=== PATIENT | male | born 1965 | race African-American/Black ===

== ENCOUNTER 2017-11-29 08:11 | Emergency (ER) | payer SELFPAY ==
--- NOTE | 2017-11-29 08:47 | ER Document Report ---
ED General - General Chief Complaint: Abdominal Pain Stated Complaint: CHEST PAIN, BLOOD IN STOOL Time Seen by Provider: 11/29/17 08:45 Information source: Patient TRAVEL OUTSIDE OF THE [place] IN LAST 30 DAYS: No - HPI Patient complains to provider of: cp/blood in stool/abd fullness/left side pain Notes: Patient is ambulatory and presents from home with multiple complaints. He states he has had chest pressure in the center of his chest intermittently for the last 2 weeks which is worse with ambulation. He also states his abdomen is barragan than normal. He states he has left pain on the side of his ribs going down into his left lower extremity. He states he has had blood in his stool for the last few weeks. He also states that a few days ago he wore shoes that he normally does not wear and injured his right second toe and now has blood underneath the nail. Patient's past medical history includes diabetes hypertension abdominal aortic aneurysm for which he received a stent placement in 2001. Patient denies any cardiac issues. He does have a primary medical doctor in another town. He states he was living in [place] until a few years ago and then transferred here. He has an appointment with his doctor December 20, 2017. Denies a history of stress test or cardiac catheterization in the past. - Related Data Allergies/Adverse Reactions: No Known Allergies Allergy (Verified 07/21/14 12:11) Past Medical History - General Information source: Patient - Social History Smoking Status: Former Smoker Frequency of alcohol use: None Drug Abuse: None Lives with: Family Family History: Reviewed & Not Pertinent Patient has suicidal ideation: No Patient has homicidal ideation: No - Past Medical History Cardiac Medical History: Reports: Hx Hypertension Pulmonary Medical History: Reports: None EENT Medical History: Reports: None Neurological Medical History: Reports: None. Denies: Hx Seizures Endocrine Medical History: Reports: Hx Diabetes Mellitus Type 2 Renal/ Medical History: Reports: None Malignancy Medical History: Reports None GI Medical History: Reports: None Musculoskeltal Medical History: Reports None Skin Medical History: Reports None Psychiatric Medical History: Reports: None Traumatic Medical History: Reports: None Infectious Medical History: Reports: None Past Surgical History: Reports: Other - stent to his aorta via groin - Immunizations Hx Diphtheria, Pertussis, Tetanus Vaccination: Yes Review of Systems - Review of Systems Constitutional: No symptoms reported EENT: No symptoms reported Cardiovascular: See HPI, Chest pain. denies: Palpitations, Heart racing, Orthopnea, Dyspnea, Syncope, Dizziness, Lightheaded, Edema Respiratory: No symptoms reported Gastrointestinal: Abdomen distended, Blood streaked bowels. denies: Abdominal pain, Diarrhea, Nausea, Vomiting, Constipation, Poor appetite, Poor fluid intake , Blood in vomit, Black stools, Rectal bleeding Genitourinary: No symptoms reported Male Genitourinary: No symptoms reported Musculoskeletal: No symptoms reported Skin: No symptoms reported Hematologic/Lymphatic: No symptoms reported Neurological/Psychological: No symptoms reported Physical Exam - Vital signs Vitals: Temp Pulse Resp BP Pulse Ox 98.9 F 72 16 171/109 H 97 11/29/17 08:18 11/29/17 08:18 11/29/17 08:18 11/29/17 08:18 11/29/17 08:18 - Notes Notes: PHYSICAL EXAMINATION: GENERAL: Well-appearing, well-nourished and in no acute distress. HEAD: Atraumatic, normocephalic. EYES: Pupils equal round and reactive to light, extraocular movements intact, sclera anicteric, conjunctiva are normal. ENT: Nares patent, oropharynx clear without exudates. Moist mucous membranes. NECK: Normal range of motion, supple without lymphadenopathy LUNGS: Breath sounds clear to auscultation bilaterally and equal. No wheezes rales or rhonchi. HEART: Regular rate and rhythm without murmurs ABDOMEN: Soft, nontender, nondistended abdomen. No guarding, no rebound. No masses appreciated. Musculoskeletal: Normal range of motion, no pitting or edema. No cyanosis. NEUROLOGICAL: Cranial nerves grossly intact. Normal speech, normal gait. Normal sensory, motor exams PSYCH: Normal mood, normal affect. SKIN: Warm, Dry, normal turgor, no rashes or lesions noted. Subungal hematoma right second toe-(blood is dark under nail and appears old). Course - Re-evaluation Re-evalutation: 11/29/17 11:[address] Ochoa, radiologist to discuss the results of the CT. 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 He states there is no aortic repair. He did state that there are clips around the pancreatic head. I did call [facility] direct for transfer and was referred to the cardiology center since I wanted to speak with the vascular surgeon. I did order fentanyl for the patient as he states he is having increased pain. I also discussed with him transfer. He states that he was taking care of in [place] because that is where he used to live and he does not have any preference as to transfer in this area. 11/29/17 12:04 I spoke with the vascular surgeon, Dr. He who stated ER to ER transfer. I talked to Dr. Hazel, who accepted patient. Demographics faxed, CT scan being electronically sent and transfer being arranged. pt. aware. - Vital Signs Vital signs: Temp Pulse Resp BP Pulse Ox 98.9 F 72 19 185/111 H 100 11/29/17 08:18 11/29/17 08:18 11/29/17 13:16 11/29/17 13:16 11/29/17 13:12 - Laboratory Result Diagrams: 11/29/17 08:41 11/29/17 08:41 Laboratory results interpreted by me: 11/29/17 11/29/17 08:41 08:41 WBC 3.6 L RBC 4.12 L Hgb 10.7 L Hct 31.9 L MCV 77 L MCH 25.9 L RDW 15.1 H Monocytes % 16.0 H Creatinine 1.42 H Est GFR (Non-Af Amer) 53 L Glucose 263 H AST 451 H ALT 461 H Alkaline Phosphatase 323 H Creatine Kinase 265 H - EKG Interpretation by Me EKG shows normal: Sinus rhythm Rate: Normal Additional EKG results interpreted by me: 11/29/17 09:51 NSSTT changes Discharge - Discharge Clinical Impression: Celiac artery dissection, Anemia, Chest pain, Subungual hematoma of toe of right foot Condition: Serious Disposition: [facility]
[2017-11-29 08:58] LABS: ABSOLUTE EOSINOPHILS # (AUTO) 0.1 10^3/uL (0.0-0.6); ABSOLUTE LYMPHOCYTES (AUTO) 0.7 10^3/uL (0.5-4.7); ABSOLUTE MONOCYTES (AUTO) 0.6 10^3/uL (0.1-1.4); ABSOLUTE NEUT (AUTO) 2.1 10^3/uL (1.7-8.2); BASOPHILS % (AUTO) 1.3 % (0-2); EOSINOPHILS % (AUTO) 3.2 % (0-6); HEMATOCRIT 31.9 % (37.9-51.0); HEMOGLOBIN 10.7 g/dL (13.5-17.0); LYMPHOCYTES % (AUTO) 20.7 % (13-45); MEAN CORPUSCULAR HEMOGLOBIN 25.9 pg (27.0-33.4); MEAN CORPUSCULAR HGB CONC 33.5 g/dL (32.0-36.0); MEAN CORPUSCULAR VOLUME 77 fl (80-97); PLATELET COUNT 284 10^3/uL (150-450); RED BLOOD COUNT 4.12 10^6/uL (4.35-5.55); RED CELL DISTRIBUTION WIDTH 15.1 % (11.5-14.0); SEGMENTED NEUTROPHILS % (AUTO) 58.8 % (42-78); TOTAL CELLS COUNTED % (AUTO) 100 %; WHITE BLOOD COUNT 3.6 10^3/uL (4.0-10.5)
[2017-11-29 09:10] LABS: ALANINE AMINOTRANSFERASE 461 U/L (21-72); ALBUMIN 3.8 g/dL (3.5-5.0); ALKALINE PHOSPHATASE 323 U/L (38-126); ANION GAP 10 (5-19); ASPARTATE AMINO TRANSFERASE 451 U/L (17-59); BILIRUBIN,DIRECT 0.4 mg/dL (0.0-0.4); BILIRUBIN,TOTAL 0.5 mg/dL (0.2-1.3); BLOOD UREA NITROGEN 17 mg/dL (7-20); CALCIUM 8.9 mg/dL (8.4-10.2); CARBON DIOXIDE 26 mmol/L (22-30); CHLORIDE 105 mmol/L (98-107); CREATINE KINASE 265 U/L (55-170); GLUCOSE 263 mg/dL (75-110); SODIUM 141.1 mmol/L (137-145); TOTAL PROTEIN 7.3 g/dL (6.3-8.2)
[2017-11-29 09:22] LABS: CREATINE KINASE MB 0.61 ng/mL (<4.55)
[2017-11-29 09:24] LABS: TROPONIN I < 0.012 ng/mL
--- NOTE | 2017-11-29 09:32 | RADIOLOGY REPORT (SQ) ---
EXAM DESCRIPTION: CHEST SINGLE VIEW COMPLETED DATE/TIME: 11/29/2017 9:04 am REASON FOR STUDY: chest pain COMPARISON: August 2008 EXAM PARAMETERS: NUMBER OF VIEWS: One view. TECHNIQUE: Single frontal radiographic view of the chest acquired. RADIATION DOSE: NA LIMITATIONS: None. FINDINGS: LUNGS AND PLEURA: No opacities, masses or pneumothorax. No pleural effusion. MEDIASTINUM AND HILAR STRUCTURES: No masses. Contour normal. HEART AND VASCULAR STRUCTURES: Heart normal in size. Normal vasculature. BONES: No acute findings. HARDWARE: None in the chest. OTHER: No other significant finding. IMPRESSION: NO ACUTE RADIOGRAPHIC FINDING IN THE CHEST. TECHNICAL DOCUMENTATION: JOB ID: [id number] [employer]- All Rights Reserved Reading location - IP/workstation name: [email or web address]
--- NOTE | 2017-11-29 09:36 | EKG REPORT ---
SEVERITY:- ABNORMAL ECG - SINUS RHYTHM PROBABLE LEFT VENTRICULAR HYPERTROPHY BORDERLINE T ABNORMALITIES, INFERIOR LEADS : Confirmed by: Matt Kim MD 29-Nov-2017 09:35:27
--- NOTE | 2017-11-29 10:56 | RADIOLOGY REPORT (SQ) ---
EXAM DESCRIPTION: CT CHEST WITH COMPLETED DATE/TIME: 11/29/2017 10:35 am REASON FOR STUDY: abd pain/history of AAA COMPARISON: Chest x-ray dated 11/29/2017 TECHNIQUE: CT scan of the chest performed using helical scanning technique with dynamic intravenous contrast injection. Images reviewed with lung, soft tissue and bone windows. Reconstructed coronal and sagittal MPR images reviewed. All images stored on PACS. All CT scanners at this facility use dose modulation, iterative reconstruction, and/or weight based d osing when appropriate to reduce radiation dose to as low as reasonably achievable (ALARA). [facility]: Dose Right [facility]: CareDose [facility]: Dose Right [facility]: Teradose 4D [facility]: 33Across CONTRAST TYPE AND DOSE: 100 venita Isovue 370 RENAL FUNCTION: Creatinine 1.4 RADIATION DOSE: . LIMITATIONS: None. FINDINGS: LUNGS AND PLEURA: No opacities, nodules, masses. No pneumothorax. No effusions. HILAR AND MEDIASTINAL STRUCTURES: No identified masses or abnormal nodes. HEART AND VASCULAR STRUCTURES: No aneurysm or dissection. No central pulmonary emboli. No pericardi al effusion. HARDWARE: None in the chest. UPPER ABDOMEN: See results under abdominal CT scan THYROID AND OTHER SOFT TISSUES: No masses. No adenopathy. BONES: No significant finding. OTHER: No other significant finding. IMPRESSION: No significant intrathoracic abnormalities were identified. Findings as noted above. TECHNICAL DOCUMENTATION: JOB ID: [id number] Quality ID # [id number]: Final reports with documentation of one or more dose reduction techniques (e.g., Au tomated exposure control, adjustment of the mA and/or kV according to patient size, use of iterative reconstruction technique) 2010 [employer]- All Rights Reserved Reading location - IP/workstation name: [email or web address]
--- NOTE | 2017-11-29 11:25 | RADIOLOGY REPORT (SQ) ---
EXAM DESCRIPTION: CT ABD/PELVIS WITH IV ONLY COMPLETED DATE/TIME: 11/29/2017 10:35 am REASON FOR STUDY: abd pain/history of AAA COMPARISON: July 2014 TECHNIQUE: CT scan of the abdomen and pelvis performed using helical scanning technique with dynamic intravenous contrast injection. No oral contrast. Images reviewed with lung, soft tissue, and bone windows. Reconstructed coronal and sagittal MPR images reviewed. Delayed images for evaluation of the urinary system also acquired. All images stored on PACS. All CT scanners at this facility use dose modulation, iterative reconstruction, and/or weight based d osing when appropriate to reduce radiation dose to as low as reasonably achievable (ALARA). [facility]: Dose Right [facility]: CareDose [facility]: Dose Right [facility]: Teradose 4D [facility]: Fanplayr CONTRAST TYPE AND DOSE: contrast/concentration: Isovue mg/ml; Total Contrast Delivered: 100.0 ml; T otal Saline Delivered: 63.8 ml RENAL FUNCTION: Creatinine 1.4 RADIATION DOSE: CT Rad equipment meets quality standard of care and radiation dose reduction techniq ues were employed. CTDIvol: 6.9 - 9.7 mGy. DLP: 1310 mGy-cm.. LIMITATIONS: None. FINDINGS: LOWER CHEST: No significant findings. No nodules or infiltrates. LIVER: Normal size. No masses. No dilated ducts. SPLEEN: Normal size. No focal lesions. PANCREAS: No masses. No significant calcifications. No adjacent inflammation or peripancreatic fluid collections. Pancreatic duct not dilated. The previously described postsurgical changes at the level the pancreatic head are again identified. GALLBLADDER: No identified stones by CT criteria. No inflammatory changes to suggest cholecystitis. ADRENAL GLANDS: No significant masses or asymmetry. RIGHT KIDNEY AND URETER: No solid masses. No significant calcifications. No hydronephrosis or hyd roureter. LEFT KIDNEY AND URETER: No solid masses. No significant calcifications. No hydronephrosis or hydr oureter. AORTA AND VESSELS: No evidence for an abdominal aortic aneurysm is seen. There is an apparent dissec tion involving the celiac axis. There are saccular structures surrounding branches of the hepatic ar silva in close proximity to the liver 1 measuring 3.8 cm in diameters and a 2nd measured 3.3 cm in justice meters. The appearance is suspicious for pseudo aneurysm was although other perivascular fluid colle ctions cannot be excluded. There were minimal perivascular densities involving the hepatic arteries on the previous study. Clinical correlation is recommended RETROPERITONEUM: No retroperitoneal adenopathy, hemorrhage or masses. BOWEL AND PERITONEAL CAVITY: No masses or inflammatory changes. No free fluid or peritoneal masses. APPENDIX: Normal. PELVIS: No mass. No free fluid. Normal bladder. ABDOMINAL WALL: No masses. Small umbilical hernia is identified containing fat BONES: No significant or acute findings. OTHER: No other significant finding. IMPRESSION: No evidence for an abdominal aortic aneurysm is seen. There is an apparent dissection i nvolving the celiac axis. There are saccular structure surrounding branches of the hepatic artery in close proximity to the liver as noted above suspicious for pseudoaneurysms although other perivascul ar fluid collections cannot be excluded. Clinical correlation is recommended. Other findings as not ed above TECHNICAL DOCUMENTATION: JOB ID: [id number] Quality ID # 436: Final reports with documentation of one or more dose reduction techniques (e.g., Au tomated exposure control, adjustment of the mA and/or kV according to patient size, use of iterative reconstruction technique) 2010 [employer]- All Rights Reserved Reading location - IP/workstation name: [facility]
[2017-11-29] MEDS ORDERED: FENTANYL CITRATE INJ/PF 100 MCG/2 ML AMPUL IV ONE (11:39)
[2017-11-29] MEDS ORDERED: LABETALOL HCL INJ 20 MG/4 ML DISP.SYRIN IV ONE (11:55)
[2017-11-29] MEDS ORDERED: HYDRALAZINE HCL INJ/PF 20 MG/1 ML SDV IV ONE ×2 (12:17→13:19)
[2017-11-29 13:23] VITALS: BP 185/111
== END 2017-11-29 13:51 | disposition short-term general hospital (02) ==
LOC: ER 08:11
DX: I77.79 Dissection of other specified artery (principal); D64.9 Anemia, unspecified; S90.121A Contusion of right lesser toe(s) without damage to nail, initial encounter; X58.XXXA Exposure to other specified factors, initial encounter; R07.9 Chest pain, unspecified; R10.9 Unspecified abdominal pain
CPT/HCPCS: 93005; 96376; 96374; 99285; 96375; 36415; 82553; 82550; 85025; 82272; 80053; 84484; 71045; 71260; 74177; 93010; J3010; J0360

== ENCOUNTER 2018-02-19 08:04 | Emergency (ER) | payer SELFPAY ==
--- NOTE | 2018-02-19 09:58 | ER Document Report ---
ED General - General Chief Complaint: Difficulty Swallowing Stated Complaint: CHEST PAIN WHEN EATING Time Seen by Provider: 02/19/18 08:45 Notes: 52-year-old male to the emergency department complaining of reflux. States that he was diagnosed with aneurysms in his abdomen. Multiple aneurysms. Was transferred to [facility]. Subsequently transferred to [facility] in [place]. Had a transesophageal biliary stent placed. Was discharged. Prior to the stent placement patient had jaundice and acute hepatotoxicity. Patient states that he has been placed on multiple medications but several of them make him worse. Pain comes up into the esophagus. When he lies flat he feels everything coming back up. States that he has an appointment today at [facility] but does not know with who. States that he was seen at [facility] but does not know which particular specialist. Does not know if it was a railway equipment operator or not. States that he was prescribed a "purple pill" for his reflux but it made him feel worse. Was prescribed medication on February 05 and he took 1 of the pills and it made it worse felt like it got stuck in his esophagus. TRAVEL OUTSIDE OF THE [place] IN LAST 30 DAYS: No - Related Data Allergies/Adverse Reactions: No Known Allergies Allergy (Unverified 02/19/18 08:06) Home Medications: HCTZ, bentyl, tramadol Past Medical History - Social History Smoking Status: Former Smoker Chew tobacco use (# tins/day): No Frequency of alcohol use: Rare Drug Abuse: Marijuana Family History: Reviewed & Not Pertinent Patient has suicidal ideation: No Patient has homicidal ideation: No - Past Medical History Cardiac Medical History: Reports: Hx Hypertension Neurological Medical History: Denies: Hx Seizures Endocrine Medical History: Reports: Hx Diabetes Mellitus Type 2 Renal/ Medical History: Denies: Hx Peritoneal Dialysis Past Surgical History: Reports: Other - stent to his aorta via groin - Immunizations Hx Diphtheria, Pertussis, Tetanus Vaccination: Yes Review of Systems - Review of Systems Constitutional: No symptoms reported EENT: No symptoms reported Cardiovascular: Chest pain Respiratory: No symptoms reported Gastrointestinal: No symptoms reported, Blood streaked bowels. denies: Abdominal pain, Diarrhea, Nausea, Vomiting Genitourinary: No symptoms reported Male Genitourinary: No symptoms reported Musculoskeletal: No symptoms reported Skin: No symptoms reported Hematologic/Lymphatic: No symptoms reported Neurological/Psychological: No symptoms reported Physical Exam - Vital signs Vitals: Temp Pulse Resp BP Pulse Ox 98.5 F 78 16 144/96 H 94 02/19/18 08:10 02/19/18 08:10 02/19/18 08:10 02/19/18 08:10 02/19/18 08:10 Interpretation: Normal - General General appearance: Appears well, Alert - HEENT Head: Normocephalic, Atraumatic Eyes: Normal Pupils: PERRL - Respiratory Respiratory status: No respiratory distress Chest status: Nontender Breath sounds: Normal Chest palpation: Normal - Cardiovascular Rhythm: Regular Heart sounds: Normal auscultation Murmur: No - Abdominal Inspection: Normal Distension: No distension Bowel sounds: Normal Tenderness: Nontender. No: Tender, Guarding, Rebound Organomegaly: No organomegaly. No: Hepatomegaly, Splenomegaly - Back Back: Normal, Nontender - Extremities General upper extremity: Normal inspection, Nontender, Normal color, Normal ROM , Normal temperature General lower extremity: Normal inspection, Nontender, Normal color, Normal ROM , Normal temperature, Normal weight bearing. No: Matthew's sign - Neurological Neuro grossly intact: Yes Cognition: Normal Orientation: AAOx4 Bolton Coma Scale Eye Opening: Spontaneous Bolton Coma Scale Verbal: Oriented Bolton Coma Scale Motor: Obeys Commands Bolton Coma Scale Total: 15 Speech: Normal Motor strength normal: LUE, RUE, LLE, RLE Sensory: Normal - Psychological Associated symptoms: Normal affect, Normal mood - Skin Skin Temperature: Warm Skin Moisture: Dry Skin Color: Normal Course - Re-evaluation Re-evalutation: 02/19/18 11:01 Patient states that he is having reflux every time he lies flat. Denies any fever, chills, sweats. Denies any abdominal pain. States that his main complaint is that he gets acid in the back of his throat and burning in his esophagus when he lies flat. States that whatever medicines of doctors have prescribed makes it worse. I was able to get in contact with gastroenterology at [facility] in [facility] [address] Sung was able to review history with me. States that he has a stent placed which drains into the esophagus. He has been advised on multiple occasions to not lie flat or this will exacerbate the reflux. Patient had stents in place and a MRI was ordered on February 05 so that he could be assessed for removal of the stents however patient has not made an appointment. The recommendation for medication that was made was for Carafate. The doctor spoke with today actually recommends placing patient on Carafate if he can afford it as well as cholestyramine which may help to bind up the bile acids. A review of his discharge labs were performed. Patient's hemoglobin and hematocrit is reportedly at his baseline. Patient denies any worsening gastrointestinal bleeding or dark tarry stools. States that he does have some intermittent blood in his stools that he has had for very long time and was told he has hemorrhoids. I have encouraged patient to follow-up with [facility] immediately to schedule his MRI and follow-up appointments. 02/19/18 11:27 Laboratory 02/19/18 02/19/18 09:20 09:20 WBC 14.7 H RBC 3.49 L Hgb 8.5 L Hct 26.5 L MCV 76 L MCH 24.3 L MCHC 32.0 RDW 18.7 H Plt Count 372 Seg Neutrophils % 86.7 H Lymphocytes % 5.6 L Monocytes % 6.8 Eosinophils % 0.5 Basophils % 0.4 Absolute Neutrophils 12.7 H Absolute Lymphocytes 0.8 Absolute Monocytes 1.0 Absolute Eosinophils 0.1 Absolute Basophils 0.1 Sodium 141.4 Potassium 3.6 Chloride 100 Carbon Dioxide 27 Anion Gap 14 BUN 32 H Creatinine 1.53 H Est GFR ( Amer) 58 L Est GFR (Non-Af Amer) 48 L Glucose 212 H Calcium 9.2 Total Bilirubin 0.5 Direct Bilirubin 0.5 H Neonat Total Bilirubin Not Reportable Neonat Direct Bilirubin Not Reportable Neonat Indirect Bili Not Reportable AST 57 ALT 38 Alkaline Phosphatase 195 H Total Protein 6.9 Albumin 3.3 L Lipase 450.0 H Chest X-Ray 02/19/18 10:26 IMPRESSION: NO ACUTE RADIOGRAPHIC FINDING IN THE CHEST. - Vital Signs Vital signs: Temp Pulse Resp BP Pulse Ox 98.5 F 78 22 H 144/96 H 97 02/19/18 08:10 02/19/18 08:10 02/19/18 09:11 02/19/18 08:10 02/19/18 09:11 - Laboratory Result Diagrams: 02/19/18 09:20 02/19/18 09:20 Laboratory results interpreted by me: 02/19/18 02/19/18 09:20 09:20 WBC 14.7 H RBC 3.49 L Hgb 8.5 L Hct 26.5 L MCV 76 L MCH 24.3 L RDW 18.7 H Seg Neutrophils % 86.7 H Lymphocytes % 5.6 L Absolute Neutrophils 12.7 H BUN 32 H Creatinine 1.53 H Est GFR ( Amer) 58 L Est GFR (Non-Af Amer) 48 L Glucose 212 H Direct Bilirubin 0.5 H Alkaline Phosphatase 195 H Albumin 3.3 L Lipase 450.0 H Discharge - Discharge Clinical Impression: Gastroesophageal reflux disease with esophagitis Condition: Good Disposition: HOME, SELF-CARE Instructions: Esophagitis ([facility]), Sucralfate ([facility]) Additional Instructions: These remain upright. Continue to exercise as much as possible. Lying flat will exacerbate her symptoms. Try the medication that has been prescribed. It will be very important that you follow-up with the gastroenterology team at [facility] to have your stents and repeat consultation performed. In the event that your symptoms are getting worse please return for repeat evaluation. Prescriptions: Cholestyramine/Aspartame [Cholestyramine Light Packet] 4 gm PO QHS 42 Days #42 powd.pack Sucralfate [Carafate] 1 gm PO QID 30 Days #1200 ml
[2018-02-19 10:37] LABS: ABSOLUTE BASOPHILS # (AUTO) 0.1 10^3/uL (0.0-0.2); ABSOLUTE EOSINOPHILS # (AUTO) 0.1 10^3/uL (0.0-0.6); ABSOLUTE LYMPHOCYTES (AUTO) 0.8 10^3/uL (0.5-4.7); ABSOLUTE NEUT (AUTO) 12.7 10^3/uL (1.7-8.2); BASOPHILS % (AUTO) 0.4 % (0-2); EOSINOPHILS % (AUTO) 0.5 % (0-6); HEMATOCRIT 26.5 % (37.9-51.0); HEMOGLOBIN 8.5 g/dL (13.5-17.0); LYMPHOCYTES % (AUTO) 5.6 % (13-45); MEAN CORPUSCULAR HEMOGLOBIN 24.3 pg (27.0-33.4); MEAN CORPUSCULAR VOLUME 76 fl (80-97); MONOCYTES % (AUTO) 6.8 % (3-13); PLATELET COUNT 372 10^3/uL (150-450); RED BLOOD COUNT 3.49 10^6/uL (4.35-5.55); RED CELL DISTRIBUTION WIDTH 18.7 % (11.5-14.0); SEGMENTED NEUTROPHILS % (AUTO) 86.7 % (42-78); TOTAL CELLS COUNTED % (AUTO) 100 %; WHITE BLOOD COUNT 14.7 10^3/uL (4.0-10.5)
[2018-02-19 10:41] LABS: ALANINE AMINOTRANSFERASE 38 U/L (21-72); ALBUMIN 3.3 g/dL (3.5-5.0); ALKALINE PHOSPHATASE 195 U/L (38-126); ANION GAP 14 (5-19); ASPARTATE AMINO TRANSFERASE 57 U/L (17-59); BILIRUBIN,DIRECT 0.5 mg/dL (0.0-0.4); BILIRUBIN,TOTAL 0.5 mg/dL (0.2-1.3); BLOOD UREA NITROGEN 32 mg/dL (7-20); CALCIUM 9.2 mg/dL (8.4-10.2); CARBON DIOXIDE 27 mmol/L (22-30); CHLORIDE 100 mmol/L (98-107); GLUCOSE 212 mg/dL (75-110); POTASSIUM 3.6 mmol/L (3.6-5.0); SODIUM 141.4 mmol/L (137-145); TOTAL PROTEIN 6.9 g/dL (6.3-8.2)
[2018-02-19] MEDS ORDERED: SUCRALFATE SUSP 1 GM/10 ML UDCUP PO ONE (10:46)
[2018-02-19] MEDS ORDERED: CHOLESTYRAMINE/ASPARTAME 4 GM PACKET PO ONE (10:46)
--- NOTE | 2018-02-19 11:07 | RADIOLOGY REPORT (SQ) ---
EXAM DESCRIPTION: CHEST SINGLE VIEW COMPLETED DATE/TIME: 02/19/2018 10:45 am REASON FOR STUDY: chest pain COMPARISON: CT chest 11/29/2017 AP chest 11/29/2017 EXAM PARAMETERS: NUMBER OF VIEWS: One view. TECHNIQUE: Single frontal radiographic view of the chest acquired. RADIATION DOSE: NA LIMITATIONS: None. FINDINGS: LUNGS AND PLEURA: No opacities, masses or pneumothorax. No pleural effusion. MEDIASTINUM AND HILAR STRUCTURES: No masses. Contour normal. HEART AND VASCULAR STRUCTURES: Stable borderline cardiomegaly BONES: No acute findings. HARDWARE: None in the chest. OTHER: No other significant finding. IMPRESSION: NO ACUTE RADIOGRAPHIC FINDING IN THE CHEST. TECHNICAL DOCUMENTATION: JOB ID: [id number] [employer]- All Rights Reserved Reading location - IP/workstation name: [email or web address]
[2018-02-19 11:45] VITALS: BP 150/108
--- NOTE | 2018-02-19 13:39 | EKG REPORT ---
SEVERITY:- ABNORMAL ECG - SINUS RHYTHM LEFT VENTRICULAR HYPERTROPHY : Confirmed by: Matt Kim MD 19-Feb-2018 13:38:08
== END 2018-02-19 11:45 | disposition home or self-care (01) ==
LOC: ER 08:04
DX: K21.0 Gastro-esophageal reflux disease with esophagitis (principal); I10 Essential (primary) hypertension; E11.9 Type 2 diabetes mellitus without complications; Z87.891 Personal history of nicotine dependence
CPT/HCPCS: 93005; 99285; 36415; 83690; 85025; 80053; 71045; 93010; J3490

== ENCOUNTER 2018-08-17 13:16 | Emergency (ER) | payer MEDICAID ==
--- NOTE | 2018-08-17 13:37 | ER Document Report ---
ED Medical Screen (RME) - General Chief Complaint: Abdominal Pain Stated Complaint: ABDOMINAL PAIN, BACK PAIN,SORE THROAT Time Seen by Provider: 08/17/18 13:25 Notes: 52-year-old male to the emergency department for evaluation of chest and abdominal pain. Patient reportedly has a history of aortic aneurysm status post stent. Scheduled to have reparative surgery in October. Was told to come here by his primary care doctor if symptoms get worse. I have greeted and performed a rapid initial assessment of this patient. A comprehensive ED assessment and evaluation of the patient, analysis of test results and completion of the medical decision making process will be conducted by additional ED providers. TRAVEL OUTSIDE OF THE [place] IN LAST 30 DAYS: No - Related Data Allergies/Adverse Reactions: No Known Allergies Allergy (Verified 08/17/18 13:37) Past Medical History - Social History Chew tobacco use (# tins/day): No Frequency of alcohol use: Rare Drug Abuse: None - Past Medical History Cardiac Medical History: Reports: Hx Hypertension Neurological Medical History: Denies: Hx Seizures Endocrine Medical History: Reports: Hx Diabetes Mellitus Type 2 Renal/ Medical History: Denies: Hx Peritoneal Dialysis Past Surgical History: Reports: Other - stent to his aorta via groin - Immunizations Hx Diphtheria, Pertussis, Tetanus Vaccination: Yes Review of Systems - Review of Systems Notes: Review of systems positive for the following: Chest pain, abdominal pain Physical Exam - Vital signs Vitals: Temp Pulse Resp BP Pulse Ox 97.6 F 83 18 145/98 H 98 08/17/18 13:20 08/17/18 13:20 08/17/18 13:20 08/17/18 13:20 08/17/18 13:20 Interpretation: Normal - Abdominal Inspection: Normal Distension: No distension Bowel sounds: Normal Tenderness: Tender - Diffuse abdominal tenderness Organomegaly: No organomegaly Course - Vital Signs Vital signs: Temp Pulse Resp BP Pulse Ox 97.6 F 83 18 145/98 H 98 08/17/18 13:20 08/17/18 13:20 08/17/18 13:20 08/17/18 13:20 08/17/18 13:20
[2018-08-17 14:12] LABS: ABSOLUTE BASOPHILS # (AUTO) 0.1 10^3/uL (0.0-0.2); ABSOLUTE EOSINOPHILS # (AUTO) 0.1 10^3/uL (0.0-0.6); ABSOLUTE LYMPHOCYTES (AUTO) 1.1 10^3/uL (0.5-4.7); ABSOLUTE MONOCYTES (AUTO) 0.7 10^3/uL (0.1-1.4); ABSOLUTE NEUT (AUTO) 3.6 10^3/uL (1.7-8.2); BASOPHILS % (AUTO) 1.1 % (0-2); EOSINOPHILS % (AUTO) 2.3 % (0-6); HEMATOCRIT 32.3 % (37.9-51.0); MEAN CORPUSCULAR HEMOGLOBIN 24.4 pg (27.0-33.4); MEAN CORPUSCULAR HGB CONC 34.1 g/dL (32.0-36.0); MEAN CORPUSCULAR VOLUME 72 fl (80-97); MONOCYTES % (AUTO) 13.1 % (3-13); PLATELET COUNT 317 10^3/uL (150-450); RED BLOOD COUNT 4.51 10^6/uL (4.35-5.55); RED CELL DISTRIBUTION WIDTH 17.8 % (11.5-14.0); SEGMENTED NEUTROPHILS % (AUTO) 63.5 % (42-78); TOTAL CELLS COUNTED % (AUTO) 100 %; WHITE BLOOD COUNT 5.7 10^3/uL (4.0-10.5)
--- NOTE | 2018-08-17 14:57 | ER Document Report ---
ED General - General Chief Complaint: Abdominal Pain Stated Complaint: ABDOMINAL PAIN, BACK PAIN,SORE THROAT Time Seen by Provider: 08/17/18 13:25 Notes: 52-year-old male with a history of aortic aneurysm presents to the ER complaining of chest and abdominal pain. He stated he has had this pain ever since he had his aortic aneurysm repaired. He states he just feels that it is getting worse. He has not followed up with [facility] where it was repaired just due to the distance to [facility]. The patient complains of aching pain in this area. Starts in his epigastrium radiates to his back. The patient also complains of a sore throat cough has been coughing up yellow-green sputum and flecks of blood. States he has had chills but denies fever. Coughing makes his throat feel worse. He describes it more as burning. Rates the chest and abdominal pain as severe. Nothing makes that better or worse TRAVEL OUTSIDE OF THE [place] IN LAST 30 DAYS: No - Related Data Allergies/Adverse Reactions: No Known Allergies Allergy (Verified 08/17/18 13:37) Past Medical History - Social History Smoking Status: Current Some Day Smoker Chew tobacco use (# tins/day): No Frequency of alcohol use: Rare Drug Abuse: None Family History: Reviewed & Not Pertinent Patient has suicidal ideation: No Patient has homicidal ideation: No - Past Medical History Cardiac Medical History: Reports: Hx Hypertension Neurological Medical History: Denies: Hx Seizures Endocrine Medical History: Reports: Hx Diabetes Mellitus Type 2 Renal/ Medical History: Denies: Hx Peritoneal Dialysis Past Surgical History: Reports: Other - stent to his aorta via groin - Immunizations Hx Diphtheria, Pertussis, Tetanus Vaccination: Yes Review of Systems - Review of Systems Constitutional: Chills. denies: Fever EENT: Nose congestion, Throat pain. denies: Throat swelling Cardiovascular: Chest pain, Dyspnea. denies: Syncope, Dizziness, Lightheaded, Edema Respiratory: denies: Short of breath Gastrointestinal: Abdominal pain, Nausea. denies: Vomiting, Constipation Genitourinary: denies: Dysuria, Hematuria Neurological/Psychological: denies: Headaches Physical Exam - Vital signs Vitals: Temp Pulse Resp BP Pulse Ox 97.6 F 83 18 145/98 H 98 08/17/18 13:20 08/17/18 13:20 08/17/18 13:20 08/17/18 13:20 08/17/18 13:20 - Notes Notes: GENERAL_APPEARANCE: well_nourished, alert, cooperative VITALS: reviewed, see vital signs table. HEAD: no_swelling\tenderness on the head. EYES: PERRL, EOMI, conjunctiva_clear. NOSE: no_nasal_discharge. MOUTH: (-)decreased moisture. No drooling no stridor no exudates, no asymmetry THROAT: Mild throat_inflammation, no_airway_obstruction. no_lymphadenopathy NECK: supple, no_neck_tenderness, (-)thyromegaly. BACK: no_back_tenderness. CHEST_WALL: no_chest_tenderness. LUNGS: no_wheezing, no_rales, no_rhonchi, (-)accessory muscle use, good air exchange bilateral. HEART: normal_rate, normal_rhythm, normal_S1, normal_S2, (-)S3, (-)S4, no_ murmur, no_rub. ABDOMEN: normal_BS, soft, epigastric_abd_tenderness, (-)guarding, (-)rebound, no_organomegaly, no_abd_masses. Large scar right upper quadrant EXTREMITIES: strength 5/5 in all_extremities, good pulses in all_extremities, no_swelling\tenderness in the extremities, no_edema. SKIN: warm, dry, good_color, no_rash. MENTAL_STATUS: speech_clear, oriented_X_3, normal_affect, responds_ appropriately to questions. NEURO: Neg Motor or Sensory Deficits on exam, CN 2-12 intact, DTR 2+ symmetric x 4, No cerbellar signs Course - Re-evaluation Re-evalutation: 08/17/18 14:56 52-year-old male with a history of aortic aneurysm presents complaining of chest and abdominal pain. He states the pain is radiating to his back. States he has had this on and off since he has had a surgery. He feels that it is worse. Will get a CTA to evaluate the chest and abdominal aorta. From the history it sounds as if the patient had a stent and may have had an endovascular leak. He has a large right upper quadrant incision which is clean dry and intact and healed. Patient has good pulses throughout. 08/17/18 18:00 CT scan showed no change to the abdominal arch thoracic aorta. Is intact there is no signs of leakage. EKG shows no ischemic changes at the sinus rhythm. Rest the blood work is normal. The patient does have a pharyngitis throat culture is done. We will treat him empirically for that I spoke with him at length about the importance of follow-up with vascular surgery at [facility]. He stated that he can afford to get there and would just come to the ER when he needs things checked on. He did have some infiltration of the contrast in his arm and explained to him the dangers of not doing this on a scheduled basis. Including infiltration of contrast and frequent exposures to contrast may worsen kidney function. He verbalized understanding. 08/17/18 18:02 The patient stated he has been having this discomfort since the surgery. This is likely postoperative changes. There is no signs of any leak EKG was unchanged I doubt he is been having a cardiac event this long. This does not seem characteristic of this. - Vital Signs Vital signs: Temp Pulse Resp BP Pulse Ox 97.6 F 83 18 145/98 H 98 08/17/18 13:20 08/17/18 13:20 08/17/18 13:20 08/17/18 13:20 08/17/18 13:20 - Laboratory Result Diagrams: 08/17/18 13:54 08/17/18 15:20 Laboratory results interpreted by me: 08/17/18 08/17/18 13:54 15:20 Hgb 11.0 L Hct 32.3 L MCV 72 L MCH 24.4 L RDW 17.8 H Monocytes % 13.1 H BUN 24 H Creatinine 1.58 H Est GFR ( Amer) 56 L Est GFR (Non-Af Amer) 46 L Glucose 215 H Alkaline Phosphatase 190 H - Diagnostic Test Radiology reviewed: Reports reviewed Radiology results interpreted by me: 08/17/18 18:01 Chest X-Ray 08/17/18 13:37 IMPRESSION: HEART ENLARGED WITHOUT FAILURE. NO OTHER SIGNIFICANT RADIOGRAPHIC FINDING IN THE CHEST. Abdomen/Pelvis CTA 08/17/18 14:52 IMPRESSION: 1. 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 Liver circulation is presumably sustained by portal flow. 2. No evidence of abdominal aortic aneurysm or dissection. 3. Mild enlargement of the tubular ascending aorta measuring up to 4.5 x 4.2 cm. No evidence of dissection or acute aortic syndrome. 4. Left and right percutaneous biliary drains are in position. Chest/Abdomen CTA 08/17/18 14:52 IMPRESSION: 1. 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 Liver circulation is presumably sustained by portal flow. 2. No evidence of abdominal aortic aneurysm or dissection. 3. Mild enlargement of the tubular ascending aorta measuring up to 4.5 x 4.2 cm. No evidence of dissection or acute aortic syndrome. 4. Left and right percutaneous biliary drains are in position. Discharge - Discharge Clinical Impression: Pharyngitis Qualifiers: Pharyngitis/tonsillitis etiology: streptococcus Qualified Code(s): J02.0 - Streptococcal pharyngitis Abdominal pain Qualifiers: Abdominal location: generalized Qualified Code(s): R10.84 - Generalized abdominal pain Condition: Good Disposition: HOME, SELF-CARE Instructions: Abdominal Pain ([facility]), Sore Throat ([facility]) Prescriptions: Amoxicillin 1 tab PO TID #30 tab
--- NOTE | 2018-08-17 15:03 | RADIOLOGY REPORT (SQ) ---
EXAM DESCRIPTION: CHEST 2 VIEWS COMPLETED DATE/TIME: 08/17/2018 2:52 pm REASON FOR STUDY: chest pain COMPARISON: None. NUMBER OF VIEWS: One view. TECHNIQUE: Single frontal radiographic view of the chest acquired. LIMITATIONS: None. FINDINGS: LUNGS AND PLEURA: No opacities, masses or pneumothorax. No pleural effusion. MEDIASTINUM AND HILAR STRUCTURES: No masses. Contour normal. HEART AND VASCULAR STRUCTURES: Heart enlarged without failure. Normal vasculature. BONES: No acute findings. HARDWARE: Abdominal hardware incompletely imaged. OTHER: No other significant finding. IMPRESSION: HEART ENLARGED WITHOUT FAILURE. NO OTHER SIGNIFICANT RADIOGRAPHIC FINDING IN THE CHEST. TECHNICAL DOCUMENTATION: JOB ID: [id number] [employer]- All Rights Reserved Reading location - IP/workstation name: [email or web address]
[2018-08-17 15:39] LABS: INTERNATIONAL RATION (INR) 1.05; PROTHROMBIN TIME 14.2 SEC (11.4-15.4)
[2018-08-17 15:55] LABS: ALANINE AMINOTRANSFERASE 38 U/L (21-72); ALBUMIN 4.1 g/dL (3.5-5.0); ALKALINE PHOSPHATASE 190 U/L (38-126); ANION GAP 12 (5-19); ASPARTATE AMINO TRANSFERASE 24 U/L (17-59); BILIRUBIN,DIRECT 0.3 mg/dL (0.0-0.4); BILIRUBIN,TOTAL 1.1 mg/dL (0.2-1.3); BLOOD UREA NITROGEN 24 mg/dL (7-20); CALCIUM 9.1 mg/dL (8.4-10.2); CARBON DIOXIDE 29 mmol/L (22-30); CHLORIDE 103 mmol/L (98-107); GLUCOSE 215 mg/dL (75-110); LIPASE 146.6 U/L (23-300); POTASSIUM 3.8 mmol/L (3.6-5.0); SODIUM 143.8 mmol/L (137-145); TOTAL PROTEIN 7.9 g/dL (6.3-8.2)
[2018-08-17 16:08] LABS: NT PRO BNP 46 pg/mL (5-900)
[2018-08-17 16:09] LABS: TROPONIN I < 0.012 ng/mL
--- NOTE | 2018-08-17 17:18 | RADIOLOGY REPORT (SQ) ---
EXAM DESCRIPTION: CTA CHEST; CTA ABDOMEN/PELVIS W WO COMPLETED DATE/TIME: 08/17/2018 4:54 pm REASON FOR STUDY: Chest / ABD Pain - Aortic Aneurysm Protocol IMPRESSION: 1. Postprocedural findings of embolic and Amplatzer device occlusion of the hepatic art shell system aneurysm and dissection seen on prior examination, without evidence of residual contrast e nhancement distal to occlusive device. Liver circulation is presumably sustained by portal flow. 2. No evidence of abdominal aortic aneurysm or dissection. 3. Mild enlargement of the tubular ascending aorta measuring up to 4.5 x 4.2 cm. No evidence of diss ection or acute aortic syndrome. 4. Left and right percutaneous biliary drains are in position. TECHNICAL DOCUMENTATION: JOB ID: [id number] Quality ID # [id number]: Final reports with documentation of one or more dose reduction techniques (e.g., Au tomated exposure control, adjustment of the mA and/or kV according to patient size, use of iterative reconstruction technique) 2010 [employer]- All Rights Reserved CONTRAST TYPE AND DOSE: contrast/concentration: Isovue 350.00 mg/ml; Total Contrast Delivered: 100.0 ml; Total Saline Delivered: 73.4 ml Contrast bolus optimized for the aorta. RENAL FUNCTION: GFR > 60. LIMITATIONS: None. COMPARISON: CT angiogram, 11/29/2017 TECHNIQUE: CT scan of the thoracic and abdominal aorta extending to the iliac bifurcation performed with and without intravenous contrast using helical scanning technique with dynamic intravenous contr ast injection. Images reviewed with lung, soft tissue, and bone windows. Reconstructed coronal and sa gittal MPR images reviewed. All images stored on PACS. Advanced 3D imaging as volume rendering, MIPS, SSD performed? yes All CT scanners at this facility use dose modulation, iterative reconstruction, and/or weight based d osing when appropriate to reduce radiation dose to as low as reasonably achievable (ALARA). [facility]: Dose Right [facility]: CareDose [facility]: Dose Right [facility]: Teradose 4D [facility]: CodeGlide, S.A. FINDINGS: NON-CONTRASTED IMAGING: No significant renal or bladder calcifications. No other significa nt organ calcifications. POST-CONTRAST IMAGING: AORTA AND VESSELS: Postprocedural findings of embolic and Amplatzer device occlusion of the hepatic a rtery system aneurysm and dissection seen on prior examination, without evidence of residual contrast enhancement distal to occlusive device. No evidence of abdominal aortic aneurysm. Incidental note of small accessory inferior pole left renal artery. Minimal calcific atherosclerosis of the abdomina l aorta. LUNGS: No significant findings. No nodules or infiltrates. LIVER: Normal size. No masses or dilated ducts. SPLEEN: Normal size. No focal lesions. PANCREAS: No masses. No significant calcifications. No adjacent inflammation or peripancreatic fluid collections. Pancreatic duct not dilated. GALLBLADDER: No identified stones by CT criteria. No inflammatory changes to suggest cholecystitis. ADRENAL GLANDS: No significant masses or asymmetry. RIGHT KIDNEY AND URETER: No mass, calculi or urinary tract obstruction. LEFT KIDNEY AND URETER: No mass, calculi or urinary tract obstruction. RETROPERITONEUM: No retroperitoneal adenopathy, hemorrhage or masses. BOWEL AND PERITONEAL CAVITY: No masses or inflammatory changes. No free fluid or peritoneal masses. APPENDIX: Normal. ABDOMINAL WALL: No masses. Broad-based umbilical hernia. BONY STRUCTURES: No significant or acute findings. 3-D IMAGING: Confirms the above findings. OTHER: No other significant finding. AORTA AND GREAT VESSELS: Mild enlargement of the tubular ascending aorta measuring up to 4.5 x 4.2 cm . No dissection. HEART: No pericardial effusion. No significant coronary artery calcifications. PULMONARY ARTERIES: No emboli visualized in the main pulmonary arteries or the segmental branches on this non tailored examination. Reading location - IP/workstation name: [email or web address]
[2018-08-17 18:18] VITALS: BP 136/88
--- NOTE | 2018-08-18 10:42 | EKG REPORT ---
SEVERITY:- ABNORMAL ECG - SINUS RHYTHM LEFT VENTRICULAR HYPERTROPHY : Confirmed by: Manuel Lewis 18-Aug-2018 10:41:40
== END 2018-08-17 18:20 | disposition home or self-care (01) ==
LOC: ER 13:16
DX: J02.0 Streptococcal pharyngitis (principal); R10.84 Generalized abdominal pain; M54.9 Dorsalgia, unspecified; R05 Cough; I10 Essential (primary) hypertension; E11.9 Type 2 diabetes mellitus without complications
CPT/HCPCS: 36415; 71046; 71275; 74174; 80053; 83690; 83880; 84484; 85025; 85610; 87070; 87880; 93005; 93010; 99285

== ENCOUNTER → 2018-10-21 | Outpatient (CLI) | payer MEDICAID ==
--- NOTE | 2018-10-21 10:56 | RADIOLOGY REPORT (SQ) ---
EXAM DESCRIPTION: LUMBAR SPINE COMPLETE COMPLETED DATE/TIME: 10/21/2018 10:41 am REASON FOR STUDY: RADICULOPATHY, LUMBAR REGION M54.16 RADICULOPATHY, LUMBAR REGION chronic mid lumb ar pain since 2014 COMPARISON: CT abdomen and pelvis 08/17/2018 NUMBER OF VIEWS: Five views including obliques. TECHNIQUE: AP, lateral, oblique, and sacral radiographic images acquired of the lumbar spine. LIMITATIONS: None. FINDINGS: MINERALIZATION: Normal. SEGMENTATION: Normal. No transitional anatomy. ALIGNMENT: Normal. VERTEBRAE: Maintained height. No fracture or worrisome bone lesion. DISCS: Preserved height. No significant osteophytes or end plate irregularity. POSTERIOR ELEMENTS: Pedicles and facets are intact. No pars defect or posterior arch defects. HARDWARE: None in the spine. Embolization coils and occlusive balloons are present in the mid epigas tric region around the pancreatic head PARASPINAL SOFT TISSUES: Normal. PELVIS: SI joints intact. Entire pelvis not included in the field of view OTHER: No other significant finding. IMPRESSION: No acute fracture or malalignment TECHNICAL DOCUMENTATION: JOB ID: [id number] [employer]- All Rights Reserved Reading location - IP/workstation name: [email or web address]
== END ==
LOC: OD 10:22
PROVIDERS: ATTEND Family Medicine
DX: M54.16 Radiculopathy, lumbar region (principal)
CPT/HCPCS: 72110

== ENCOUNTER 2019-01-10 16:38 | Inpatient (IN) | payer MEDICAID ==
[2019-01-10] MEDS ORDERED: KETOROLAC TROMETHAMINE INJ/PF 30 MG/1 ML SDV IV ONE (17:32)
[2019-01-10] MEDS ORDERED: NORMAL SALINE 1000 ML 1,000 ML IV ONE ×3 (17:32→23:28)
--- NOTE | 2019-01-10 17:36 | ER Document Report ---
ED Medical Screen (RME) - General Chief Complaint: Headache Stated Complaint: LEG PAIN Time Seen by Provider: 01/10/19 17:22 Primary Care Provider: NITA MIKE MD [Primary Care Provider] - Follow up as needed TRAVEL OUTSIDE OF THE [place] IN LAST 30 DAYS: No - HPI Notes: 01/10/19 17:33 Patient is a 53-year-old male with a history of hypertension and diabetes who presents to the emergency department complaining of headache, acute on chronic low back pain, generalized body ache that began a couple days ago with the fever beginning yesterday. He is still able to eat and drink, but does have a decreased p.o. intake. He is urinating normally and having normal bowel movements. Denies IV drug abuse or history of spinal abscess. Denies neck stiffness, URI, CP, SOB, Abd pain, or rash. I have treated and performed a rapid initial assessment of this patient. A comprehensive ED assessment and evaluation of the patient, analysis of test results and completion of medical decision making process will be conducted by additional ED providers. PHYSICAL EXAMINATION: GENERAL: Well-appearing, well-nourished and in no acute distress. A&Ox4. Answers questions appropriately. LUNGS: Breath sounds clear to auscultation bilaterally and equal. No wheezes rales or rhonchi. HEART: Regular rate and rhythm without murmurs, rubs, gallops. Extremities: No cyanosis, clubbing, or edema b/l. NEUROLOGICAL: Normal speech, normal gait. PSYCH: Normal mood, normal affect. - Related Data Allergies/Adverse Reactions: No Known Allergies Allergy (Verified 01/10/19 16:41) Past Medical History - Social History Chew tobacco use (# tins/day): No Frequency of alcohol use: Occasional Drug Abuse: Prescription drugs - Past Medical History Cardiac Medical History: Reports: Hx Hypertension Neurological Medical History: Denies: Hx Seizures Endocrine Medical History: Reports: Hx Diabetes Mellitus Type 2 Renal/ Medical History: Denies: Hx Peritoneal Dialysis Past Surgical History: Reports: Other - stent to his aorta via groin - Immunizations Hx Diphtheria, Pertussis, Tetanus Vaccination: Yes Physical Exam - Vital signs Vitals: Temp Pulse Resp BP Pulse Ox 101.8 F H 113 H 17 170/108 H 95 01/10/19 17:14 01/10/19 17:14 01/10/19 17:14 01/10/19 17:14 01/10/19 17:14 Course - Vital Signs Vital signs: Temp Pulse Resp BP Pulse Ox 101.8 F H 113 H 17 170/108 H 95 01/10/19 17:14 01/10/19 17:14 01/10/19 17:14 01/10/19 17:14 01/10/19 17:14 Doctor's Discharge - Discharge Referrals: NITA MIKE MD [Primary Care Provider] - Follow up as needed
[2019-01-10] MEDS ORDERED: ACETAMINOPHEN 325 MG TABLET PO ONE (18:15)
[2019-01-10 18:58] LABS: ABSOLUTE BASOPHILS # (AUTO) 0.1 10^3/uL (0.0-0.2); ABSOLUTE EOSINOPHILS # (AUTO) 0.1 10^3/uL (0.0-0.6); ABSOLUTE LYMPHOCYTES (AUTO) 1.2 10^3/uL (0.5-4.7); ABSOLUTE MONOCYTES (AUTO) 0.7 10^3/uL (0.1-1.4); ABSOLUTE NEUT (AUTO) 8.1 10^3/uL (1.7-8.2); BASOPHILS % (AUTO) 0.7 % (0-2); EOSINOPHILS % (AUTO) 0.5 % (0-6); HEMATOCRIT 35.9 % (37.9-51.0); HEMOGLOBIN 12.1 g/dL (13.5-17.0); LYMPHOCYTES % (AUTO) 11.5 % (13-45); MEAN CORPUSCULAR HEMOGLOBIN 24.9 pg (27.0-33.4); MEAN CORPUSCULAR HGB CONC 33.6 g/dL (32.0-36.0); MEAN CORPUSCULAR VOLUME 74 fl (80-97); MONOCYTES % (AUTO) 7.4 % (3-13); PLATELET COUNT 295 10^3/uL (150-450); RED BLOOD COUNT 4.86 10^6/uL (4.35-5.55); RED CELL DISTRIBUTION WIDTH 17.5 % (11.5-14.0); SEGMENTED NEUTROPHILS % (AUTO) 79.9 % (42-78); TOTAL CELLS COUNTED % (AUTO) 100 %; WHITE BLOOD COUNT 10.1 10^3/uL (4.0-10.5)
--- NOTE | 2019-01-10 19:07 | RADIOLOGY REPORT (SQ) ---
EXAM DESCRIPTION: CHEST SINGLE VIEW COMPLETED DATE/TIME: 01/10/2019 6:59 pm REASON FOR STUDY: fever COMPARISON: 08/17/2018 EXAM PARAMETERS: NUMBER OF VIEWS: One view. TECHNIQUE: Single frontal radiographic view of the chest acquired. RADIATION DOSE: NA LIMITATIONS: None. FINDINGS: LUNGS AND PLEURA: No opacities, masses or pneumothorax. No pleural effusion. MEDIASTINUM AND HILAR STRUCTURES: No masses. Contour normal. HEART AND VASCULAR STRUCTURES: Heart normal in size. Normal vasculature. BONES: No acute findings. HARDWARE: None in the chest. OTHER: No other significant finding. IMPRESSION: NO ACUTE RADIOGRAPHIC FINDING IN THE CHEST. TECHNICAL DOCUMENTATION: JOB ID: [id number] [employer]- All Rights Reserved Reading location - IP/workstation name: [email or web address]
[2019-01-10 19:22] LABS: ALANINE AMINOTRANSFERASE 21 U/L (21-72); ALBUMIN 4.6 g/dL (3.5-5.0); ALKALINE PHOSPHATASE 177 U/L (38-126); ANION GAP 13 (5-19); ASPARTATE AMINO TRANSFERASE 27 U/L (17-59); BILIRUBIN,DIRECT 0.4 mg/dL (0.0-0.4); BILIRUBIN,TOTAL 0.8 mg/dL (0.2-1.3); BLOOD UREA NITROGEN 23 mg/dL (7-20); CALCIUM 9.7 mg/dL (8.4-10.2); CARBON DIOXIDE 22 mmol/L (22-30); CHLORIDE 102 mmol/L (98-107); GLUCOSE 187 mg/dL (75-110); POTASSIUM 4.3 mmol/L (3.6-5.0)
[2019-01-10] MEDS ORDERED: KETOROLAC TROMETHAMINE INJ/PF 30 MG/1 ML SDV ONE (20:44)
[2019-01-10] MEDS ORDERED: ACETAMINOPHEN 325 MG TABLET ONE (20:44)
[2019-01-10 20:49] LABS: VENOUS BLOOD BASE EXCESS 2.6 mmol/L; VENOUS BLOOD HCO3 26.8 mmol/L (20-32); VENOUS BLOOD PCO2 39.8 mmHg (35-63); VENOUS BLOOD PH 7.45 (7.30-7.42)
[2019-01-10] MEDS ORDERED: CEFEPIME 2 GM/D5W RTU 2 GM/50 ML RTUPB IV ONE (21:17)
[2019-01-10] MEDS ORDERED: IBUPROFEN 600 MG TABLET PO ONE (21:18)
--- NOTE | 2019-01-10 21:24 | ER Document Report ---
ED General - General Chief Complaint: Headache Stated Complaint: LEG PAIN Time Seen by Provider: 01/10/19 17:22 Cannot obtain history due to: Uncooperative Notes: Patient is a 53-year-old male with a past medical history of hypertension, history of abdominal aortic aneurysm status post repair with a history of an aortic thrombus, noncompliant with his medications, presents complaining of low back pain, headache and fever. The patient is an extremely challenging historian, struggles to provide a cogent history as to why he is presenting to the emergency department today. On a multitude of occasions I do attempt to redirect the patient to give me his specific concerns today and he continues to give a long list of different complaints. After much attempt the patient does focus mostly on his low back stating that he has chronic daily back pain but has today much worse back pain than normal. Describes it as a throbbing, constant, aching discomfort. He states walking or moving worsens the back pain. He d enies IV drug use, history of back surgery, denies any focal weakness or numbness, bowel incontinence, urinary retention or bladder incontinence. Denies any trauma to the back. States that his fever started last night, has not done anything to treat it. Has had a mild cough but denies any sore throat. No history of similar symptoms in the past. Has not seen his primary doctor regarding today's concerns. Denies abdominal pain, chest pain or shortness of breath. TRAVEL OUTSIDE OF THE [place] IN LAST 30 DAYS: No - Related Data Allergies/Adverse Reactions: No Known Allergies Allergy (Verified 01/10/19 16:41) Past Medical History - General Information source: Patient - Social History Smoking Status: Current Some Day Smoker Chew tobacco use (# tins/day): No Frequency of alcohol use: Occasional Drug Abuse: Prescription drugs Lives with: Family Family History: Reviewed & Not Pertinent Patient has suicidal ideation: No Patient has homicidal ideation: No - Past Medical History Cardiac Medical History: Reports: Hx Hypertension Neurological Medical History: Denies: Hx Seizures Endocrine Medical History: Reports: Hx Diabetes Mellitus Type 2 Renal/ Medical History: Denies: Hx Peritoneal Dialysis Past Surgical History: Reports: Other - stent to his aorta via groin - Immunizations Hx Diphtheria, Pertussis, Tetanus Vaccination: Yes Review of Systems - Review of Systems Notes: Constitutional: Positive for fever HENT: Negative for sore throat. Eyes: Negative for visual changes. Cardiovascular: Negative for chest pain. Respiratory: Negative for shortness of breath. Positive cough Gastrointestinal: Negative for abdominal pain, vomiting or diarrhea. Genitourinary: Negative for dysuria. Musculoskeletal: Positive for low back pain Skin: Negative for rash. Neurological: N positive for headache 10 point ROS negative except as marked above and in HPI. Physical Exam - Vital signs Vitals: Temp Pulse Resp BP Pulse Ox 101.8 F H 113 H 17 170/108 H 95 01/10/19 17:14 01/10/19 17:14 01/10/19 17:14 01/10/19 17:14 01/10/19 17:14 Interpretation: Hypertensive, Tachycardic, Febrile Notes: PHYSICAL EXAMINATION: GENERAL: Somewhat ill in appearance but in no overt distress HEAD: Atraumatic, normocephalic. EYES: Pupils equal round and reactive to light, extraocular movements intact, sclera anicteric, conjunctiva are normal. ENT: nares patent, oropharynx clear without exudates. Dry mucous membranes. NECK: Normal range of motion, supple without lymphadenopathy LUNGS: Breath sounds clear to auscultation bilaterally and equal. No wheezes rales or rhonchi. HEART: Regular tachycardia without murmurs ABDOMEN: Soft, nontender, normoactive bowel sounds. No guarding, no rebound. No masses appreciated. Back: No midline spinal tenderness, step-offs or deformities EXTREMITIES: Normal range of motion, no pitting or edema. No cyanosis. NEUROLOGICAL: 5 out of 5 strength both distally and proximally bilateral lower extremities. 2+ patellar reflexes bilaterally. No clonus. Sensation grossly intact in the bilateral lower extremities. Patient is able to ambulate without difficulty. PSYCH: Anxious, tangential historian. SKIN: Warm, Dry, normal turgor, no rashes or lesions noted. Course - Re-evaluation Re-evalutation: 01/10/19 21:21 Patient presents ill in appearance, febrile, tachycardic, somewhat lethargic in bed with complaints of headache, back pain, leg pain and fever. The patient is a very difficult historian, has a near complete positive review of systems which makes it quite difficult to delineate what is his main concerns. However patient is objectively ill in appearance, has fever and tachycardia. His main complaint appears to be low back pain which he states that he has had for many months but that is much worse today. He states he is having pain radiate down his legs but denies any focal weakness, numbness, incontinence. On exam he has 5 out of 5 both distally and proximally bilateral lower extremities, 2+ radial and ankle reflexes. No saddle anesthesia. On back exam there is no midline spinal tenderness, step-offs or deformities although he is globally tender in this paraspinous spaces throughout the thoracic and lumbar spine region. He has no CVA tenderness. The patient has a history of an abdominal aortic aneurysm rupture status post repair but denies any abdominal pain. He has no focal abdominal pain on examination. He said that he has had a mild cough, denies sore throat. Chest x-ray clear without evidence of pneumonia, influenza is pending. Patient has no meningismus, full neck range of motion both actively and passively. States his headache is quite mild. He is not encephalopathic, low clinical suspicion for a bacterial meningitis, although viral meningitis remains a differential although it would be unusual for this to be causing some prominent back pain. At this point the differential is quite large given the overall difficulty of obtaining a good history from the patient as well as his ill appearance. My first step at this point will be get an MRI of the patient's lumbar and thoracic spine to definitively exclude an epidural abscess given his fever and complaint of severe back pain. If this is normal and I am not identifying any other alternative source of infection as his urinalysis is still pending I will proceed with a lumbar puncture to definitively exclude meningitis. Given the delay for the definitive diagnosis I will begin empiric treatment with IV antibiotics, 2 g cefepime. IV fluids ongoing. Patient has received antipyretics but remains febrile. Patient is in guarded condition, will reassess at regular intervals. 01/10/19 21:58 Patient is unable to get an MRI secondary to aneurysmal clips. At this point will get CT of the abdomen pelvis as well as the thoracic and lumbar spine with IV contrast which is not the ideal study but is my only option at this point. 01/10/19 23:22 All imaging has been canceled at this point as patient's influenza test has returned positive. Patient does have some but not all clinical symptomology to support this diagnosis as he does deny sore throat but does complain of minimal cough. However with a source of his fever I do think that the most probable diagnosis is actually that the patient is having myalgias and associated mus culoskeletal pain worsening of his chronic pain secondary to fever. His symptoms have actually improved dramatically after he defervesced. Will discuss with Dr. Chicas for hospitalization as patient is having periods of hypoxia while awake coming down to the mid 80s on room air. I will set him up he has been started due to the fact that he will require hospitalization. 01/10/19 23:[address] speak to [address] Chicas for admission. He has requested a CTA of the chest as well as CT scan of the abdomen and pelvis given patient has a history of a thrombus in his aorta and he is concerned that that could be playing part of his hypoxia. States that as long as this is acceptable he will accept the patient. 01/11/19 02:19 CTA of the chest and CT abdomen pelvis as requested by Dr. Chicas are without any acute findings that would be related to his current presentation. He has been accepted to the [facility]. 01/11/19 03:24 - Vital Signs Vital signs: Temp Pulse Resp BP Pulse Ox 98.2 F 113 H 15 153/90 H 94 01/11/19 00:57 01/10/19 17:14 01/11/19 02:21 01/11/19 02:21 01/11/19 02:21 - Laboratory Result Diagrams: 01/10/19 18:48 01/10/19 18:48 Laboratory results interpreted by me: 01/10/19 01/10/19 01/10/19 18:03 18:48 18:48 Hgb 12.1 L Hct 35.9 L MCV 74 L MCH 24.9 L RDW 17.5 H Seg Neutrophils % 79.9 H Lymphocytes % 11.5 L VBG pH BUN 23 H Creatinine 1.83 H Est GFR ( Amer) 47 L Est GFR (Non-Af Amer) 39 L Glucose 187 H POC Glucose 192 H Alkaline Phosphatase 177 H Total Protein 9.0 H Urine Protein Urine Glucose (UA) Urine Blood 01/10/19 01/10/19 20:37 21:25 Hgb Hct MCV MCH RDW Seg Neutrophils % Lymphocytes % VBG pH 7.45 H BUN Creatinine Est GFR ( Amer) Est GFR (Non-Af Amer) Glucose POC Glucose Alkaline Phosphatase Total Protein Urine Protein 100 H Urine Glucose (UA) 50 H Urine Blood MODERATE H - Diagnostic Test Radiology reviewed: Image reviewed, Reports reviewed Radiology results interpreted by me: 01/11/19 02:20 Chest x-ray: No acute infiltrate or pneumothorax Critical Care Note - Critical Care Note Total time excluding time spent on procedures (mins): 35 Comments: Critical care time spent obtaining history from patient or surrogate, discussions with consultants, development of treatment plan with patient or surrogate, evaluation of patient's response to treatment, examination of patien t, ordering and performing treatments and interventions, ordering and review of laboratory studies, re-evaluation of patient's condition, ordering and review of radiographic studies and review of old charts Discharge - Discharge Clinical Impression: Influenza, Acute respiratory failure with hypoxia Fever Qualifiers: Fever type: unspecified Qualified Code(s): R50.9 - Fever, unspecified Low back pain Qualifiers: Chronicity: chronic Back pain laterality: unspecified Sciatica presence: without sciatica Qualified Code(s): M54.5 - Low back pain Headache Qualifiers: Headache type: unspecified Headache chronicity pattern: acute headache I ntractability: not intractable Qualified Code(s): R51 - Headache Condition: Fair Disposition: ADMITTED INPATIENT Admitting Provider: Chicas Unit Admitted: [facility]
[2019-01-10] MEDS ORDERED: HYDROMORPHONE HCL INJ/PF 2 MG/ML AMPULE IV PRN (21:35)
[2019-01-10 21:36] LABS: APPEARANCE,URINE CLEAR; BILIRUBIN,URINE NEGATIVE (NEGATIVE); COLOR,URINE YELLOW; GLUCOSE, URINE 50 mg/dL (NEGATIVE); KETONES,URINE NEGATIVE (NEGATIVE); LEUKOCYTE ESTERASE,URINE NEGATIVE (NEGATIVE); NITRITE,URINE NEGATIVE (NEGATIVE); PROTEIN,URINE 100 mg/dL (NEGATIVE); URINE SPECIFIC GRAVITY 1.013; UROBILINOGEN,URINE NEGATIVE mg/dL (<2.0)
[2019-01-10 21:58] LABS: A TYPE INFLUENZA AG NEGATIVE (NEGATIVE); B INFLUENZA AG POSITIVE (NEGATIVE)
--- NOTE | 2019-01-10 23:09 | RADIOLOGY REPORT (SQ) ---
EXAM DESCRIPTION: CT HEAD WITHOUT IV CONTRAST COMPLETED DATE/TME: 01/10/2019 22:26 CLINICAL HISTORY: 53 years Male, fever, headache COMPARISON: 10/04/14 TECHNIQUE: No contrast. Coronal and sagittal reformat. This exam was performed according to our departmental dose-optimization program, which includes automated exposure control, adjustment of the mA and/or kV according to patient size and/or use of iterative reconstruction technique. FINDINGS: No hemorrhage or infarct. No mass, mass effect, or midline shift. Megacisterna magna. 0.3 cm benign calcified nodule of the right posterior fossa, chronic. Brain and extra-axial structures appear otherwise intact. IMPRESSION: No acute findings.
[2019-01-10] MEDS ORDERED: OSELTAMIVIR PHOSPHATE 75 MG CAPSULE PO ONE (23:21)
--- NOTE | 2019-01-11 01:16 | RADIOLOGY REPORT (SQ) ---
CLINICAL HISTORY: hypoxia, white request COMPARISON: None. TECHNIQUE: CT CHEST ANGIOGRAPHY WITHOUT THEN WITH IV CONTRAST, CT ABDOMEN PELVIS WITH IV CONTRAST on 01/10/2019 11:27 PM CDT. MIPS reconstructions were generated. This exam was performed according to our departmental dose-optimization program, which includes automated exposure control, adjustment of the mA and/or kV according to patient size and/or use of iterative reconstruction technique. FINDINGS: Vascular: The midascending thoracic aorta is dilated at 4.4 cm. There is no dissection. Pulmonary arteries are suboptimally opacified with no larger central filling defects. Abdominal aorta is normal in course and caliber without aneurysm. Pelvic arteries are patent without aneurysm or occlusion. The heart is normal in size. There is no pericardial effusion. Intrathoracic lymph nodes are not enlarged. There is no pleural effusion, pleural thickening or pneumothorax. Central airways are patent. Lungs are clear with no consolidation, mass or interstitial lung disease. Abdomen: The liver is nodular in contour. There is mild central intrahepatic biliary dilatation. Gallbladder is decompressed. There are multiple surgical clips and coils surrounding the pancreatic head. Spleen is normal in size. The adrenal glands and kidneys are unremarkable. Abdominal aorta is normal in course and caliber without aneurysm. There is no free air. There is no retroperitoneal adenopathy.There is a fat-containing umbilical hernia. Pelvis: There is mild diverticulosis of the distal colon. Urinary bladder is unremarkable. There is no free fluid. Appendix is normal. Skeleton: There are no acute osseous findings. No suspicious bony lesions. IMPRESSION: Central hepatic biliary dilatation. Mild dilatation of the mid ascending thoracic aorta without dissection. No large or central pulmonary embolus. No pneumonia.
[2019-01-11] MEDS ORDERED: IPRATROPIUM/ALBUTEROL 0.5-2.5 MG/3 ML AMPUL NEB PRN (02:24)
[2019-01-11] MEDS ORDERED: GLUCAGON,HUMAN RECOMB 1 MG INJ IM PRN (02:32)
[2019-01-11] MEDS ORDERED: DEXTROSE 50%-WATER 25 GM/50 ML DISP.SYRIN IV PRN ×2 (02:32)
[2019-01-11] MEDS ORDERED: DEXTROSE 40% GEL 15 GM TUBE PO PRN ×2 (02:32)
[2019-01-11 03:34] LABS: URINE AMPHETAMINES SCREEN NEGATIVE; URINE BARBITURATES SCREEN NEGATIVE; URINE BENZODIAZEPINES SCREEN NEGATIVE; URINE COCAINE SCREEN UNCONFIRMED POSITIVE; URINE MARIJUANA (THC) SCREEN NEGATIVE; URINE METHADONE SCREEN NEGATIVE; URINE PHENCYCLIDINE SCREEN NEGATIVE
[2019-01-11] MEDS: OXYCODONE-ACETAMINOPHEN 5-325 MG TABLET PO PRN ×4 (04:07→22:16)
[2019-01-11] MEDS: NORMAL SALINE 1000 ML 1,000 ML IV PRN ×2 (04:25→15:23)
[2019-01-11] MEDS: PANTOPRAZOLE SODIUM 40 MG TABLET.DR PO SCH (05:58)
[2019-01-11] MEDS: INSULIN LISPRO 100 UNIT/ML 3 ML VIAL SUBCUT SCH ×4 (08:40→22:33)
[2019-01-11] MEDS ORDERED: CEFEPIME 2 GM/D5W RTU 2 GM/50 ML RTUPB IV SCH (10:00)
[2019-01-11] MEDS: DOCUSATE SODIUM 100 MG CAPSULE PO SCH ×2 (11:34→17:22)
[2019-01-11] MEDS: CEFEPIME HCL 2 GM in DEXTROSE 5%-WATER 50 ML IV SCH ×2 (11:34→22:23)
[2019-01-11] MEDS: OSELTAMIVIR PHOSPHATE 75 MG CAPSULE PO SCH ×2 (11:34→17:24)
--- NOTE | 2019-01-11 11:52 | PDOC H&P ---
History of Present Illness Admission Date/PCP: 01/11/19 02:37 NITA MIKE MD Patient complains of: Fever History of Present Illness: BIANCA CUNNINGHAM is a 53 year old male This is a 53-year-old male with a history of the type 2 diabetes history of the hypertension's history of the substernal abuse and history of noncompliance and a history of aortic aneurysm repair at [facility] which is also noncompliance to follow recently as a new patient to the practice came to the emergency department with a complaining of a fever headache and a severe back pain. Patient is a very poor historians according to the ER physicians he tried to get the history unable to get it much and with doing a lot of testings which including the CT of the head was negative and a CT of the chest abdomen and pelvis was done because of the patient's not giving the proper history to rule o ut the other etiology which is also negative for any acute findings. Patient is positive for the flu which is related to the all the symptoms decided to admit in the hospital Patient with chronic back problems always asks some pain medications seen by the pain management in the past Patient also have this vascular issue which referred to the vascular surgeon at [facility] in the [facility] vascular call the patient he did not answer and he claimed he did not answer the unknown phone number which very noncompliance to not follow Patients do not take the medicine as prescribed Patient urine drug screen is positive for cocaine but patients denied to use it patient said that he used to marijuana Patient's when I saw it in the IMCU still complaining of back pain Patient unable to go to the MRI due to the vascular clip Patient's review the all the CT scan was all stable Patient with chronic kidney disease currently see Dr. Pinzon recently get a contrast will continues IV fluids and closely monitor We will put the patient has some pain medication and consult the pain management in order the CT of the LS spine and C-spine further evaluations but unable to get the MRI Patient denied any visual problem No sign of any meningitis Continues to IV fluid continues IV antibiotics Patient otherwise alert awake oriented answer all question appropriately except complaining of a pain Supposed to be on Eliquis because patient have a thrombus in the aorta which current CT scan is all stable but I do not think so patients take any Eliquis as prescribed Past Medical History Cardiac Medical History: Reports: Hypertension Neurological Medical History: Denies: Seizures Endocrine Medical History: Reports: Diabetes Mellitus Type 2 Renal/ Medical History: Reports: Chronic Kidney Disease GI Medical History: Reports: Gastroesophageal Reflux Disease Musculoskeltal Medical History: Reports: Arthritis, Other Musculoskeletal History Note: Chronic back pain and chronic pain syndrome Psychiatric Medical History: Reports: Substance Abuse Past Surgical History Past Surgical History: Reports: Vascular Surgery, Other - stent to his aorta via groin Social History Lives with: Family Smoking Status: Current Some Day Smoker Frequency of Alcohol Use: Occasional Hx Recreational Drug Use: Yes Drugs: Cocaine Hx Prescription Drug Abuse: Yes - Advance Directive Resuscitation Status: Full Code Family History Family History: Reviewed & Not Pertinent Parental Family History Reviewed: Yes Children Family History Reviewed: Yes Sibling(s) Family History Reviewed.: Yes Medication/Allergy Allergies/Adverse Reactions: No Known Allergies Allergy (Verified 01/10/19 16:41) Review of Systems All systems: reviewed and no additional remarkable complaints except as stated Constitutional: PRESENT: chills, fatigue, fever(s) Nose, Mouth, and Throat: PRESENT: headache(s) Cardiovascular: PRESENT: dyspnea on exertion Respiratory: PRESENT: cough, dyspnea Psychiatric: PRESENT: anxiety Physical Exam Vital Signs: Temp Pulse Resp BP Pulse Ox 99.1 F 112 H 14 164/93 H 98 01/11/19 07:46 01/11/19 07:46 01/11/19 07:46 01/11/19 07:46 01/11/19 07:46 Intake & Output 01/10/19 01/11/19 01/12/19 06:59 06:59 06:59 Intake Total 3450 Output Total 3600 Balance -150 Weight 98.2 kg General appearance: PRESENT: no acute distress, well-developed, well-nourished Head exam: PRESENT: atraumatic, normocephalic Eye exam: PRESENT: conjunctiva pink, EOMI, PERRLA. ABSENT: scleral icterus Ear exam: PRESENT: normal external ear exam Mouth exam: PRESENT: moist, tongue midline Neck exam: PRESENT: full ROM. ABSENT: carotid bruit, JVD, lymphadenopathy, thyromegaly Respiratory exam: PRESENT: clear to auscultation [place] Cardiovascular exam: PRESENT: RRR. ABSENT: diastolic murmur, rubs, systolic murmur Pulses: PRESENT: normal dorsalis pedis pul, +2 pedal pulses bilateral Vascular exam: PRESENT: normal capillary refill GI/Abdominal exam: PRESENT: normal bowel sounds, soft. ABSENT: distended, guarding, mass, organolmegaly, rebound, tenderness Rectal exam: PRESENT: deferred Extremities exam: ABSENT: pedal edema Neurological exam: PRESENT: alert, awake, oriented to person, oriented to place, oriented to time, oriented to situation, reflexes normal, CN II-XII grossly intact, normal gait. ABSENT: motor sensory deficit Additional comments: No meningeal sign Psychiatric exam: PRESENT: appropriate affect, normal mood. ABSENT: homicidal ideation, suicidal ideation Skin exam: PRESENT: dry, intact, warm. ABSENT: cyanosis, rash Results Laboratory Results: 01/10/19 18:48 01/10/19 18:48 01/10/19 01/10/19 01/10/19 18:48 18:48 20:37 WBC 10.1 RBC 4.86 Hgb 12.1 L Hct 35.9 L MCV 74 L MCH 24.9 L MCHC 33.6 RDW 17.5 H Plt Count 295 Seg Neutrophils % 79.9 H Lymphocytes % 11.5 L Monocytes % 7.4 Eosinophils % 0.5 Basophils % 0.7 Absolute Neutrophils 8.1 Absolute Lymphocytes 1.2 Absolute Monocytes 0.7 Absolute Eosinophils 0.1 Absolute Basophils 0.1 VBG pH VBG pCO2 VBG HCO3 VBG Base Excess Sodium 137.0 Potassium 4.3 Chloride 102 Carbon Dioxide 22 Anion Gap 13 BUN 23 H Creatinine 1.83 H Est GFR ( Amer) 47 L Est GFR (Non-Af Amer) 39 L Glucose 187 H Lactic Acid 1.3 Calcium 9.7 Total Bilirubin 0.8 AST 27 ALT 21 Alkaline Phosphatase 177 H Total Protein 9.0 H Albumin 4.6 Urine Color Urine Appearance Urine pH Ur Specific [place] Urine Protein Urine Glucose (UA) Urine Ketones Urine Blood Urine Nitrite Ur Leukocyte Esterase Urine WBC (Auto) Urine RBC (Auto) 01/10/19 01/10/19 20:37 21:25 WBC RBC Hgb Hct MCV MCH MCHC RDW Plt Count Seg Neutrophils % Lymphocytes % Monocytes % Eosinophils % Basophils % Absolute Neutrophils Absolute Lymphocytes Absolute Monocytes Absolute Eosinophils Absolute Basophils VBG pH 7.45 H VBG pCO2 39.8 VBG HCO3 26.8 VBG Base Excess 2.6 Sodium Potassium Chloride Carbon Dioxide Anion Gap BUN Creatinine Est GFR ( Amer) Est GFR (Non-Af Amer) Glucose Lactic Acid Calcium Total Bilirubin AST ALT Alkaline Phosphatase Total Protein Albumin Urine Color YELLOW Urine Appearance CLEAR Urine pH 5.0 Ur Specific [place] 1.013 Urine Protein 100 H Urine Glucose (UA) 50 H Urine Ketones NEGATIVE Urine Blood MODERATE H Urine Nitrite NEGATIVE Ur Leukocyte Esterase NEGATIVE Urine WBC (Auto) 0 Urine RBC (Auto) 1 Impressions: Chest X-Ray 01/10/19 17:32 IMPRESSION: NO ACUTE RADIOGRAPHIC FINDING IN THE CHEST. Head CT 01/10/19 22:26 IMPRESSION: No acute findings. Abdomen/Pelvis CT 01/10/19 23:26 IMPRESSION: Central hepatic biliary dilatation. Mild dilatation of the mid ascending thoracic aorta without dissection. No large or central pulmonary embolus. No pneumonia. Chest/Abdomen CTA 01/10/19 23:27 IMPRESSION: Central hepatic biliary dilatation. Mild dilatation of the mid ascending thoracic aorta without dissection. No large or central pulmonary embolus. No pneumonia. Assessment & Plan - Diagnosis (1) Influenza Is this a current diagnosis for this admission?: Yes Plan: Continues to Tamiflu (2) Fever Qualifiers: Fever type: unspecified Qualified Code(s): R50.9 - Fever, unspecified Is this a current diagnosis for this admission?: Yes Plan: Most likely from the influenza We will get the blood culture urine culture No sign of any meningitis No indication of the lumbar puncture at this point (3) Type 2 diabetes mellitus Is this a current diagnosis for this admission?: Yes Plan: Continues a sliding scales (4) Hypertension Qualifiers: Hypertension type: essential hypertension Qualified Code(s): I10 - Essent ial (primary) hypertension Is this a current diagnosis for this admission?: Yes Plan: Continues to current medication (5) Substance abuse Is this a current diagnosis for this admission?: Yes Plan: Patients need a psych consult (6) Aortic aneurysm Qualifiers: Presence of rupture: without rupture Is this a current diagnosis for this admission?: Yes Plan: CT scan looks all stable (7) Headache Qualifiers: Headache type: unspecified Headache chronicity pattern: acute headache Intractability: not intractable Qualified Code(s): R51 - Headache Is this a current diagnosis for this admission?: Yes Plan: Patient CT of the head is negative Unable to get the MRI Most likely related to the influenza fever No sign of any meningitis (8) Low back pain Qualifiers: Chronicity: chronic Back pain laterality: unspecified Sciatica presence: without sciatica Qualified Code(s): M54.5 - Low back pain; G89.29 - Other chronic pain Is this a current diagnosis for this admission?: Yes Plan: Will get the CT of the C-spine and L-spine while unable to get the MRI We will consult the pain management - Time Time Spent: 50 to 70 Minutes Medications reviewed and adjusted accordingly: Yes Anticipated discharge: Home Within: Other - Inpatient Certification Based on my medical assessment, after consideration of the patient's comorbidities, presenting symptoms, or acuity I expect that the services needed warrant INPATIENT care.: Yes I certify that my determination is in accordance with my understanding of Medicare's requirements for reasonable and necessary INPATIENT services [42 CFR 412.3e].: Yes Medical Necessity: Significant Comorbidiites Make Outpatient Treatment Too Risky, Need Close Monitoring Due to Risk of Patient Decompensation, Need For IV Fluids, Need for IV Antibiotics Post Hospital Care: D/C Business Enterprise Officer Documentation - Plan Summary Plan Summary: Admit the patient in IMCU IV fluid Tamiflu IV antibiotic until the cultures back Continues to monitor We will get the CT of the C-spine and L-spine Consult pain management
[2019-01-11] MEDS: ACETAMINOPHEN 325 MG TABLET PO PRN ×2 (13:09→21:02)
[2019-01-11] MEDS ORDERED: (PENDING PHARMACY ID) (Linagliptin [Tradjenta] 5 MG) PO SCH (13:45)
[2019-01-11 14:32] LABS: ALANINE AMINOTRANSFERASE 24 U/L (21-72); ALBUMIN 3.9 g/dL (3.5-5.0); ALKALINE PHOSPHATASE 138 U/L (38-126); ASPARTATE AMINO TRANSFERASE 17 U/L (17-59); BILIRUBIN,DIRECT 0.4 mg/dL (0.0-0.4); TOTAL PROTEIN 7.5 g/dL (6.3-8.2)
[2019-01-11] MEDS: SITAGLIPTIN PHOSPHATE 50 MG TABLET PO SCH (15:18)
[2019-01-11] MEDS: GABAPENTIN 300 MG CAPSULE PO SCH ×2 (15:18→22:23)
[2019-01-11] MEDS: METOPROLOL TARTRATE 100 MG TABLET PO SCH (15:18)
--- NOTE | 2019-01-11 16:07 | RADIOLOGY REPORT (SQ) ---
EXAM DESCRIPTION: CT LUMBAR SPINE WITHOUT COMPLETED DATE/TIME: 01/11/2019 3:47 pm REASON FOR STUDY: low back pain COMPARISON: None. TECHNIQUE: Axial images acquired through the lumbar spine without intravenous contrast. Images revi ewed with lung, soft tissue and bone windows. Reconstructed coronal and sagittal MPR images reviewed . All images stored on PACS. All CT scanners at this facility use dose modulation, iterative reconstruction, and/or weight based d osing when appropriate to reduce radiation dose to as low as reasonably achievable (ALARA). [facility]: Dose Right [facility]: CareDose [facility]: Dose Right [facility]: Teradose 4D [facility]: [employer] RADIATION DOSE: mGy. LIMITATIONS: None. FINDINGS: SEGMENTATION: Normal. No transitional anatomy. ALIGNMENT: Normal. VERTEBRAL BODIES: No fractures. No dislocation. No acute findings. DISCS: Maintained heights generally. Mild disc bulging at L4-5. Mild broad protrusion is suggested at L5-S1. This likely contacts the right S1 nerve root without displacement. PEDICLES, TRANSVERSE PROCESSES: No fractures. No dislocation. No acute findings. FACETS, POSTERIOR ELEMENTS: No fractures. No dislocation. No spinal stenosis. HARDWARE: None in the spine. VISUALIZED RIBS: No fractures. SOFT TISSUES: No significant or acute finding in adjacent soft tissues. OTHER: No other significant finding. IMPRESSION: 1. Lower lumbar disc disease. 2. No high-grade stenosis, fracture or bone lesion. No spinal malalignment detected. TECHNICAL DOCUMENTATION: JOB ID: [id number] Quality ID # [id number]: Final reports with documentation of one or more dose reduction techniques (e.g., Au tomated exposure control, adjustment of the mA and/or kV according to patient size, use of iterative reconstruction technique) 2010 [employer]- All Rights Reserved Reading location - IP/workstation name: [email or web address]
--- NOTE | 2019-01-11 16:16 | RADIOLOGY REPORT (SQ) ---
EXAM DESCRIPTION: CT CERVICAL SPINE WITHOUT COMPLETED DATE/TIME: 01/11/2019 3:47 pm REASON FOR STUDY: neck pain COMPARISON: None. TECHNIQUE: Axial images acquired through the cervical spine without intravenous contrast. Images re viewed with lung, soft tissue and bone windows. Reconstructed coronal and sagittal MPR images review ed. Images stored on PACS. All CT scanners at this facility use dose modulation, iterative reconstruction, and/or weight based d osing when appropriate to reduce radiation dose to as low as reasonably achievable (ALARA). [facility]: Dose Right [facility]: CareDose [facility]: Dose Right [facility]: Teradose 4D [facility]: [employer] RADIATION DOSE: CT Rad equipment meets quality standard of care and radiation dose reduction techniq ues were employed. CTDIvol: 25.2 mGy. DLP: 574 mGy-cm. mGy. LIMITATIONS: None. FINDINGS: ALIGNMENT: Anatomic. MINERALIZATION: Normal. VERTEBRAL BODIES: No fractures or dislocation. DISCS: Mild disc space narrowing without significant osteophytes at C6-7 and C7-T1. FACETS, LATERAL MASSES, POSTERIOR ELEMENTS: No fractures. No dislocation. No acute findings. HARDWARE: None in the spine. VISUALIZED RIBS: No fractures. LUNG APICES AND SOFT TISSUES: No significant or acute findings. OTHER: No other significant finding. IMPRESSION: Mild cervical spondylosis. No fracture or spinal malalignment. TECHNICAL DOCUMENTATION: JOB ID: [id number] Quality ID # [id number]: Final reports with documentation of one or more dose reduction techniques (e.g., Au tomated exposure control, adjustment of the mA and/or kV according to patient size, use of iterative reconstruction technique) 2010 [employer]- All Rights Reserved Reading location - IP/workstation name: [email or web address]
[2019-01-11] MEDS ORDERED: METOPROLOL TARTRATE 25 MG TABLET PO SCH (22:00)
[2019-01-12] MEDS: NORMAL SALINE 1000 ML 1,000 ML IV PRN ×3 (00:58→21:49)
[2019-01-12] MEDS: OXYCODONE HCL IR 5 MG TABLET PO PRN ×4 (03:30→23:15)
[2019-01-12] MEDS: ACETAMINOPHEN 325 MG TABLET PO PRN (04:52)
[2019-01-12] MEDS: PANTOPRAZOLE SODIUM 40 MG TABLET.DR PO SCH (05:54)
[2019-01-12 06:59] LABS: HEPATITIS A AB IGM Negative (Negative); HEPATITIS B CORE AB IGM Negative (Negative); HEPATITS B SURFACE ANTIGEN Negative (Negative)
[2019-01-12] MEDS: INSULIN LISPRO 100 UNIT/ML 3 ML VIAL SUBCUT SCH ×4 (07:50→21:53)
--- NOTE | 2019-01-12 10:24 | PDOC PROGRESS REPORT ---
Subjective Progress Note for:: 01/12/19 Subjective:: Patient is feeling better but still complaining of back issue and still complains some frontal headache Patient is alert awake oriented x3 Patient fever is also coming down Patient so far blood culture is negative's Patient CT of the C-spine and L-spine is all stable Patient seen by the pain management Patient is denied any nausea no vomiting No eye problems Reason For Visit: FLU Physical Exam Vital Signs: Temp Pulse Resp BP Pulse Ox 98.8 F 80 16 154/84 H 96 01/12/19 07:44 01/12/19 07:44 01/12/19 07:44 01/12/19 07:44 01/12/19 07:44 Intake & Output 01/11/19 01/12/19 01/13/19 06:59 06:59 06:59 Intake Total 3450 2857 Output Total 3600 3730 Balance -150 -873 Weight 98.2 kg 100.4 kg General appearance: PRESENT: no acute distress, well-developed, well-nourished Head exam: PRESENT: atraumatic, normocephalic Eye exam: PRESENT: conjunctiva pink, EOMI, PERRLA. ABSENT: scleral icterus Ear exam: PRESENT: normal external ear exam Mouth exam: PRESENT: moist, tongue midline Neck exam: PRESENT: full ROM. ABSENT: carotid bruit, JVD, lymphadenopathy, thyromegaly Respiratory exam: PRESENT: clear to auscultation [place] Cardiovascular exam: PRESENT: RRR. ABSENT: diastolic murmur, rubs, systolic murmur Vascular exam: PRESENT: normal capillary refill GI/Abdominal exam: PRESENT: normal bowel sounds, soft. ABSENT: distended, guarding, mass, organolmegaly, rebound, tenderness Rectal exam: PRESENT: deferred Musculoskeletal exam: PRESENT: ambulatory Neurological exam: PRESENT: alert, awake, oriented to person, oriented to place, oriented to time, oriented to situation, CN II-XII grossly intact. ABSENT: motor sensory deficit Additional comments: No meningeal sign Psychiatric exam: PRESENT: appropriate affect, normal mood. ABSENT: homicidal ideation, suicidal ideation Skin exam: PRESENT: dry, intact, warm. ABSENT: cyanosis, rash Results Laboratory Results: 01/10/19 18:48 01/10/19 18:48 01/11/19 08:00 Total Bilirubin 1.0 AST 17 ALT 24 Alkaline Phosphatase 138 H Total Protein 7.5 Albumin 3.9 Lipase 154.0 Impressions: Chest X-Ray 01/10/19 17:32 IMPRESSION: NO ACUTE RADIOGRAPHIC FINDING IN THE CHEST. Head CT 01/10/19 22:26 IMPRESSION: No acute findings. Abdomen/Pelvis CT 01/10/19 23:26 IMPRESSION: Central hepatic biliary dilatation. Mild dilatation of the mid ascending thoracic aorta without dissection. No large or central pulmonary embolus. No pneumonia. Chest/Abdomen CTA 01/10/19 23:27 IMPRESSION: Central hepatic biliary dilatation. Mild dilatation of the mid ascending thoracic aorta without dissection. No large or central pulmonary embolus. No pneumonia. Cervical Spine CT 01/11/19 00:00 IMPRESSION: Mild cervical spondylosis. No fracture or spinal malalignment. Lumbar Spine CT 01/11/19 00:00 IMPRESSION: 1. Lower lumbar disc disease. 2. No high-grade stenosis, fracture or bone lesion. No spinal malalignment det ected. Assessment & Plan - Diagnosis (1) Influenza Is this a current diagnosis for this admission?: Yes Plan: Continues to Tamiflu (2) Fever Qualifiers: Fever type: unspecified Qualified Code(s): R50.9 - Fever, unspecified Is this a current diagnosis for this admission?: Yes Plan: Most likely coming from the flu is all coming down no sign of any meningitis patient otherwise fully alert awake oriented x3 no sign of meningeal (3) Type 2 diabetes mellitus Is this a current diagnosis for this admission?: Yes Plan: Continues a sliding scales (4) Hypertension Qualifiers: Hypertension type: essential hypertension Qualified Code(s): I10 - Essential (primary) hypertension Is this a current diagnosis for this admission?: Yes Plan: Continues to current medication (5) Substance abuse Is this a current diagnosis for this admission?: Yes Plan: Patients need a psych consult (6) Aortic aneurysm Qualifiers: Presence of rupture: without rupture Is this a current diagnosis for this admission?: Yes Plan: CT scan looks all stable (7) Headache Qualifiers: Headache type: unspecified Headache chronicity pattern: acute headache Intractability: not intractable Qualified Code(s): R51 - Headache Is this a current diagnosis for this admission?: Yes Plan: Continues to as needed tylenolol Most likely respiratory things Nothing to related to any meningitis (8) Low back pain Qualifiers: Chronicity: chronic Back pain laterality: unspecified Sciatica presence: without sciatica Qualified Code(s): M54.5 - Low back pain; G89.29 - Other chronic pain Is this a current diagnosis for this admission?: Yes Plan: Currently all stable Physical therapy evaluations (9) Chronic kidney disease Qualifiers: Chronic kidney disease stage: stage 3 (moderate) Qualified Code(s): N18.3 - Chronic kidney disease, stage 3 (moderate) Is this a current diagnosis for this admission?: Yes Plan: IV fluid will check the current kidney functions - Time Time Spent with patient: 15-24 minutes Medications reviewed and adjusted accordingly: Yes Anticipated discharge: Home Within: Other - Plan Summary Plan Summary: Patient is currently doing well All signs symptoms improving Continues to IV antibiotic until the cultures back Continues to Tamiflu
[2019-01-12] MEDS: OSELTAMIVIR PHOSPHATE 75 MG CAPSULE PO SCH ×2 (10:35→17:15)
[2019-01-12] MEDS: DOCUSATE SODIUM 100 MG CAPSULE PO SCH ×2 (10:36→17:15)
[2019-01-12] MEDS: CEFEPIME HCL 2 GM in DEXTROSE 5%-WATER 50 ML IV SCH ×2 (10:36→21:48)
[2019-01-12] MEDS: METOPROLOL TARTRATE 100 MG TABLET PO SCH (10:36)
[2019-01-12] MEDS: GABAPENTIN 300 MG CAPSULE PO SCH ×2 (10:36→21:54)
[2019-01-12] MEDS: SITAGLIPTIN PHOSPHATE 50 MG TABLET PO SCH (10:36)
[2019-01-12 11:11] LABS: HEMATOCRIT 33.1 % (37.9-51.0); HEMOGLOBIN 11.2 g/dL (13.5-17.0); MEAN CORPUSCULAR HEMOGLOBIN 24.7 pg (27.0-33.4); MEAN CORPUSCULAR VOLUME 73 fl (80-97); PLATELET COUNT 245 10^3/uL (150-450); RED BLOOD COUNT 4.54 10^6/uL (4.35-5.55); RED CELL DISTRIBUTION WIDTH 17.6 % (11.5-14.0); WHITE BLOOD COUNT 6.2 10^3/uL (4.0-10.5)
[2019-01-12 11:16] LABS: ANION GAP 14 (5-19); BLOOD UREA NITROGEN 16 mg/dL (7-20); CALCIUM 8.7 mg/dL (8.4-10.2); CARBON DIOXIDE 21 mmol/L (22-30); CHLORIDE 99 mmol/L (98-107); GLUCOSE 229 mg/dL (75-110); POTASSIUM 3.8 mmol/L (3.6-5.0); SODIUM 134.1 mmol/L (137-145)
[2019-01-12 12:21] LABS: ABSOLUTE LYMPHOCYTES# (MANUAL) 1.4 10^3/uL (0.5-4.7); ABSOLUTE MONOCYTES # (MANUAL) 1.2 10^3/uL (0.1-1.4); ABSOLUTE NEUTROPHILS# (MANUAL) 3.6 10^3/uL (1.7-8.2); BASOPHILS % (MANUAL) 0 % (0-2); EOSINOPHILS % (MANUAL) 1 % (0-6); LYMPHOCYTES % (MANUAL) 22 % (13-45); MONOCYTES % (MANUAL) 19 % (3-13); SEGMENTED NEUTROPHILS % (MAN) 58 % (42-78); TOTAL CELLS COUNTED 100
[2019-01-12 12:22] LABS: ANISOCYTOSIS 1+; PLATELET COMMENT ADEQUATE; POLYCHROMASIA SLIGHT
--- NOTE | 2019-01-12 19:14 | RADIOLOGY REPORT (SQ) ---
EXAM DESCRIPTION: U/S ABDOMEN COMPLETE W/O DOP COMPLETED DATE/TIME: 01/12/2019 6:39 pm REASON FOR STUDY: abd pain COMPARISON: None. TECHNIQUE: Dynamic and static grayscale images acquired of the abdomen and recorded on PACS. Additio nal selected color Doppler and spectral images recorded. Note: Study does not meet criteria for complete doppler/duplex scan LIMITATIONS: None. FINDINGS: PANCREAS: No masses. Visualized pancreatic duct normal caliber. LIVER: No masses. Echotexture normal. LIVER VASCULATURE: Normal directional flow of the main portal vein and hepatic veins. GALLBLADDER: No stones. Normal wall thickness. No pericholecystic fluid. ULTRASOUND-DETECTED CHARLES'S SIGN: Negative. INTRAHEPATIC DUCTS AND COMMON DUCT: CBD and intrahepatic ducts normal caliber. No filling defects. INFERIOR VENA CAVA: Normal flow. AORTA: No aneurysm. RIGHT KIDNEY: Normal size. Normal echogenicity. No solid or suspicious masses. No hydronephros is. No calcifications. LEFT KIDNEY: Normal size. Normal echogenicity. No solid or suspicious masses. No hydronephrosi s. No calcifications. SPLEEN: Normal size. No solid masses. PERITONEAL AND PLEURAL SPACES: No ascites or effusions. OTHER: No other significant finding. IMPRESSION: NORMAL ABDOMINAL ULTRASOUND. TECHNICAL DOCUMENTATION: JOB ID: [id number] [employer]- All Rights Reserved Reading location - IP/workstation name: [email or web address]
[2019-01-13] MEDS: OXYCODONE HCL IR 5 MG TABLET PO PRN ×3 (06:19→18:30)
[2019-01-13] MEDS: PANTOPRAZOLE SODIUM 40 MG TABLET.DR PO SCH (06:19)
[2019-01-13 06:53] LABS: HEMATOCRIT 31.4 % (37.9-51.0); HEMOGLOBIN 10.7 g/dL (13.5-17.0); MEAN CORPUSCULAR HEMOGLOBIN 24.8 pg (27.0-33.4); MEAN CORPUSCULAR HGB CONC 34.1 g/dL (32.0-36.0); MEAN CORPUSCULAR VOLUME 73 fl (80-97); PLATELET COUNT 226 10^3/uL (150-450); RED BLOOD COUNT 4.32 10^6/uL (4.35-5.55); RED CELL DISTRIBUTION WIDTH 17.4 % (11.5-14.0); WHITE BLOOD COUNT 6.6 10^3/uL (4.0-10.5)
[2019-01-13 07:11] LABS: ANION GAP 13 (5-19); BLOOD UREA NITROGEN 16 mg/dL (7-20); CALCIUM 8.9 mg/dL (8.4-10.2); CARBON DIOXIDE 24 mmol/L (22-30); CHLORIDE 97 mmol/L (98-107); GLUCOSE 191 mg/dL (75-110); POTASSIUM 3.4 mmol/L (3.6-5.0); SODIUM 134.1 mmol/L (137-145)
[2019-01-13 07:20] LABS: HEPATITIS C VIRUS ANTIBODY <0.1 s/co ratio (0.0-0.9)
[2019-01-13 07:41] LABS: ABSOLUTE LYMPHOCYTES# (MANUAL) 1.1 10^3/uL (0.5-4.7); ABSOLUTE MONOCYTES # (MANUAL) 1.1 10^3/uL (0.1-1.4); ABSOLUTE NEUTROPHILS# (MANUAL) 4.4 10^3/uL (1.7-8.2); BAND NEUTROPHILS % (MANUAL) 1 % (3-5); BASOPHILS % (MANUAL) 0 % (0-2); EOSINOPHILS % (MANUAL) 1 % (0-6); LYMPHOCYTES % (MANUAL) 15 % (13-45); MONOCYTES % (MANUAL) 16 % (3-13); SEGMENTED NEUTROPHILS % (MAN) 65 % (42-78); TOTAL CELLS COUNTED 100
[2019-01-13 07:42] LABS: ANISOCYTOSIS 1+; HYPOCHROMASIA 1+; PLATELET COMMENT ADEQUATE; POLYCHROMASIA SLIGHT; TOXIC VACUOLATION PRESENT
[2019-01-13] MEDS: INSULIN LISPRO 100 UNIT/ML 3 ML VIAL SUBCUT SCH ×4 (07:57→23:32)
[2019-01-13] MEDS: NORMAL SALINE 1000 ML 1,000 ML IV PRN ×3 (07:58→18:47)
[2019-01-13] MEDS ORDERED: POTASSIUM CHLORIDE 20 MEQ PACKET PO ONE (09:00)
--- NOTE | 2019-01-13 09:08 | CONSULTATION REPORT E ---
Consultation Report NAME: BIANCA CUNNINGHAM : 1965 AGE: 53Y DATE: 01/12/2019 336 A TO: NAKUL HARDY FROM: (Dr. Chicas)NITA CHICAS M.D. Requesting Physician CHIEF COMPLAINT: Chronic low back pain. HISTORY OF PRESENT ILLNESS: This is a 53-year-old male that I was consulted on for management of chronic lower back pain by Dr. Chicas. The patient has been admitted to the hospital by way of the ER with diagnosis of influenza. This patient comes to us with a history of hypertension, diabetes, chronic kidney disease, abdominal aorta aneurysm repair, aortic thrombosis, as well as a history of noncompliance with medications, as well as lower back pain. The patient's consult for chronic back pain during the history of physical examination noted that this patient has been very challenging in regards to giving details of his history and his pain during the physical examination. Complaints are vague, generalized and at times, difficult to get him to be specific with his specific complaints, pain presentation, and complications. The patient states that the onset of his back pain was overall "a while ago" without any history of trauma or injury. He states that he noted the pain becoming worse after he had an abdominal aorta aneurysm repair in 2018. Pain is a burning, sharp, stabbing presentation at the lower back with some intermittent radicular pain of the bilateral lower extremities to the feet. Pain is aggravated by standing, bending, lifting, or extensive or prolonged range of motion or activity. It improves with repositioning and resting. He denies a history of physical therapy, occupational therapy, work hardening, heat, ice, nerve block, epidural steroid injections, chiropractor, or counseling. The patient is unable to have MRIs secondary to abdominal aorta clips from his previous surgical intervention, so he has had a CT that was completed during his stay at the hospital as ordered by Dr. Chicas. Denies seeing any neurosurgeon or having any previous pain management care. In regards to medications, he has found some relief with the use of oxycodone in the past. Has tried and failed with [id number] medications, Epsom salt, Motrin, Tylenol, Flexeril, tramadol previously. Denies trial of baclofen, Zanaflex, Robaxin, Lyrica, Topamax, morphine, Dilaudid, amitriptyline, any other neuropathic pain medications, topical compounded creams, Voltaren gel, Lidoderm, or Flector patches. The patient does admit to use of marijuana and cocaine. States that he does not use cocaine consistently; however, he did use when smoking marijuana as he states the marijuana he smoked was laced with cocaine. Denies any surgical interventions for his lower back at this time. PAST MEDICAL HISTORY: The patient's past medical history was reported to be positive for: 1. Hypertension. 2. Diabetes type 2. 3. Aortic stent via placement via groin. 4. Chronic kidney disease. 5. Gastroesophageal reflux disease. 6. Osteoarthritis. 7. Chronic back pain. SOCIAL HISTORY: The patient admits to currently being an intermittent day smoker. Denies any chewing tobacco. Has occasional use of alcohol. Reported history of prescription drug abuse. Currently, lives with his family and denies any homicidal or suicidal ideations. SURGICAL HISTORY: Abdominal aorta aneurysm repair and stent placement via groin. FAMILY HISTORY: Reviewed with the patient, but not pertinent at this point. MEDICATIONS: Reviewed in chart. REVIEW OF SYSTEMS: CONSTITUTIONAL: The patient states that he has ongoing back pain. Denies any nausea or vomiting. Does feel some level of minor fever, but much improved since previous evaluation. HEENT: Denies any blurry vision, dizziness, difficulty with runny nose, sore throat at this time. EYES: Negative for any visual changes. CARDIOVASCULAR: Negative for any chest pain, tightness. RESPIRATORY: Denies any shortness of breath, wheezing. Does report a previous cough, but has improved. GASTROINTESTINAL: Denies any abdominal pain, vomiting, or diarrhea. URINARY: Denies any dysuria. MUSCULOSKELETAL: Notes joint pain, knee pain, and ongoing chronic back pain. SKIN: Denies any rashes or lesions. NEUROLOGICAL: Does complain of headaches. ALLERGIES: No known drug allergies. PHYSICAL EXAMINATION: VITAL SIGNS: Temperature 98.8, pulse of 97, respirations of 16, blood pressure 154/84, pulse oximetry 100% on room air. GENERAL: The patient is somewhat ill-appearing, but no overt distress. Well-developed, well-nourished, lying on his right side in bed. Alert and oriented x3. HEAD: Atraumatic and normocephalic. EYES: PERRLA and EOMI. EARS AND THROAT: Nares appear to be patent. Oropharynx is clear. No exudate or productive coughing noted. No loss of hearing noted during conversation. Oral moist mucous membranes noted on exam. NECK: Normal range of motion. Supple without any lymphadenopathy. Trachea midline. No goiters, masses, lesions noted. LUNGS: Clear to auscultation bilaterally. HEART: Shows regular rate and rhythm. No murmurs, gallops, or rubs. Do note a pedal pulse of 2+ bilaterally. ABDOMEN: Nontender, nondistended. Positive bowel sounds x4. No guarding, rebounding. BACK: Noted diffuse tenderness to palpation of the lumbar spine greater at midline from levels of L2 to L5 and S1. Negative straight leg raises noted on exam. Declined standing, so unable to assess facet joints and range of motion. EXTREMITIES: Normal range of motion. No pitting edema, cyanosis. Noted knee pain with range of motion and some diffuse tenderness to palpation. NEUROLOGIC: He seems to be neurologically intact with strength of the bilateral lower extremities with 5/5. Patellar reflexes 2+ bilaterally. No noted clonus and sensation seems to be intact in the bilateral lower extremities as well. Denies any issues with ambulating independently. PSYCH: The patient seems to be anxious, is a tangential historian, agitated and lying in bed. Seems to be annoyed with some of the questions I ask in regards to his physical examination. SKIN: Dry. Normal turgor. No rashes, lesions, or tattoos noted on exam. RADIOGRAPHIC RESULTS: Reviewed CT of the lumbar spine completed 01/11/2019 at 3:47 p.m. It was noted on the CT mild disk bulging at L4-5 with a mild broad protrusion suggested at L5-S1. This likely contacts the right S1 nerve root without displacement. Otherwise, lower lumbar disk disease without any noted high-grade stenosis, fracture, or bone lesions. No spinal malalignment detected. ASSESSMENT: 1. Lumbar disk disease. 2. Lumbar radiculopathy. 3. Chronic lower back pain. 4. Substance abuse. 5. Chronic kidney disease. 6. Influenza. PLAN: 1. Given findings of cocaine in the urine drug screen and reported use of marijuana, there are some definite concerns for long-term use of opioids and controlled substances. [place] database was reviewed, noted most recent prescription for controlled substance given was for oxycodone 5 mg given on 12/22/2018. No other previous controlled substance seems to be noted on the database with the exception of another prescription that was given back in 03/2018. At this point, will agree with Dr. Chicas and recommend the patient undergo psychological counseling for the substance abuse. 2. Given a reported history of chronic kidney disease, will limit use of opioids to ones with less renal effects to it. Although the patient was verbally resistant to physical examination, upon review of the CT and complaints, will recommend rotation of Percocet to oxycodone 10 mg every 6 hours as needed and monitor pain control for the next 24 to 48 hours. With a history noncompliance and the use of illicit drugs, will recommend avoiding escalation of any controlled substances above 50 to 60 (morphine mEq) per day. Discussed risk of use of opioids with illicit drugs with the patient in detail. Also, advised that upon discharge that he should establish with a Pain Management and consider physical therapy, possible injection therapy, and other treatment options that may avoid use of opioids on an ongoing basis. Do not recommend opioid use outside of hospitalization for an extended period of time without seeing Pain Management for ongoing care. 3. Will consider for a trial of low-dose Lyrica due to reported side effects with escalated dosing of gabapentin for neuropathic and chronic pain. 4. Recommend the patient also follow up with Nephrology for further evaluation of chronic kidney disease, but especially in regards to medication management and new prescriptions. I want to thank you for the opportunity to be a part of the team that cares for this patient. Should you have any questions or concerns, please feel free to reach out to our office. We would be more than happy to assist you going forward. Thank you for time. DICTATING PHYSICIAN: NAKUL HARDY [id number] PHY#: [id number] ID: [id number] JOB#: [id number] ACCT: [id number] cc:GRANT DAVIS >
--- NOTE | 2019-01-13 09:40 | PDOC PROGRESS REPORT ---
Subjective Progress Note for:: 01/13/19 Subjective:: Patient is currently doing fair Patient alert awake oriented x4 Patient's p.o. intake is good Only concerns patient still persistent headache Patient to denied any eye problems Patient also have a back issues with seen by the pain management Patient have overnight T-max fever was 100.4 Patient have a positive flu Patient [facility] record showing the patient have a liver abscess was drained last year ultrasound of the abdomen was negative for any acute finding and CT of the abdomen and pelvis was negative for any acute finding If the patient have a persistent headache fever could be possible patient might have a some viral meningitis but otherwise no sign of any real meningeal signs concern about whether needs to do the lumbar puncture or not and discussed with the patient he will so what ever needs to be do fine We will put a ID consults for further evaluate Reason For Visit: FLU Physical Exam Vital Signs: Temp Pulse Resp BP Pulse Ox 97.6 F 76 18 143/90 H 98 01/13/19 07:36 01/13/19 07:36 01/13/19 07:36 01/13/19 07:36 01/13/19 07:36 Intake & Output 01/12/19 01/13/19 01/14/19 06:59 06:59 06:59 Intake Total 2857 3149 1994 Output Total 3730 3030 Balance -293 474 0496 Weight 100.4 kg 99.6 kg General appearance: PRESENT: no acute distress, well-developed, well-nourished Head exam: PRESENT: atraumatic, normocephalic Eye exam: PRESENT: conjunctiva pink, EOMI, PERRLA. ABSENT: scleral icterus Ear exam: PRESENT: normal external ear exam Mouth exam: PRESENT: moist, tongue midline Neck exam: PRESENT: full ROM. ABSENT: carotid bruit, JVD, lymphadenopathy, thy romegaly Respiratory exam: PRESENT: clear to auscultation [place] Cardiovascular exam: PRESENT: RRR. ABSENT: diastolic murmur, rubs, systolic murmur Vascular exam: PRESENT: normal capillary refill GI/Abdominal exam: PRESENT: normal bowel sounds, soft. ABSENT: distended, guarding, mass, organolmegaly, rebound, tenderness Rectal exam: PRESENT: deferred Extremities exam: ABSENT: pedal edema Musculoskeletal exam: PRESENT: ambulatory Neurological exam: PRESENT: alert, awake, oriented to person, oriented to place, oriented to time, oriented to situation, reflexes normal, CN II-XII grossly intact, normal gait. ABSENT: motor sensory deficit Psychiatric exam: PRESENT: appropriate affect, normal mood. ABSENT: homicidal ideation, suicidal ideation Skin exam: PRESENT: dry, intact, warm. ABSENT: cyanosis, rash Results Laboratory Results: 01/13/19 06:35 01/13/19 06:35 01/12/19 01/12/19 01/13/19 10:22 10:22 06:35 WBC 6.2 6.6 RBC 4.54 4.32 L Hgb 11.2 L 10.7 L Hct 33.1 L 31.4 L MCV 73 L 73 L MCH 24.7 L 24.8 L MCHC 34.0 34.1 RDW 17.6 H 17.4 H Plt Count 245 226 Seg Neutrophils % Not Reportable Not Reportable Lymphocytes % Not Reportable Not Reportable Monocytes % Not Reportable Not Reportable Eosinophils % Not Reportable Not Reportable Basophils % Not Reportable Not Reportable Absolute Neutrophils Not Reportable Not Reportable Absolute Lymphocytes Not Reportable Not Reportable Absolute Monocytes Not Reportable Not Reportable Absolute Eosinophils Not Reportable Not Reportable Absolute Basophils Not Reportable Not Reportable Sodium 134.1 L Potassium 3.8 Chloride 99 Carbon Dioxide 21 L Anion Gap 14 BUN 16 Creatinine 1.50 H Est GFR ( Amer) 59 L Est GFR (Non-Af Amer) 49 L Glucose 229 H Lactic Acid Calcium 8.7 01/13/19 01/13/19 06:35 06:35 WBC RBC Hgb Hct MCV MCH MCHC RDW Plt Count Seg Neutrophils % Lymphocytes % Monocytes % Eosinophils % Basophils % Absolute Neutrophils Absolute Lymphocytes Absolute Monocytes Absolute Eosinophils Absolute Basophils Sodium 134.1 L Potassium 3.4 L Chloride 97 L Carbon Dioxide 24 Anion Gap 13 BUN 16 Creatinine 1.50 H Est GFR ( Amer) 59 L Est GFR (Non-Af Amer) 49 L Glucose 191 H Lactic Acid 0.8 Calcium 8.9 Impressions: Chest X-Ray 01/10/19 17:32 IMPRESSION: NO ACUTE RADIOGRAPHIC FINDING IN THE CHEST. Head CT 01/10/19 22:26 IMPRESSION: No acute findings. Abdomen/Pelvis CT 01/10/19 23:26 IMPRESSION: Central hepatic biliary dilatation. Mild dilatation of the mid ascending thoracic aorta without dissection. No large or central pulmonary embolus. No pneumonia. Chest/Abdomen CTA 01/10/19 23:27 IMPRESSION: Central hepatic biliary dilatation. Mild dilatation of the mid ascending thoracic aorta without dissection. No large or central pulmonary embolus. No pneumonia. Cervical Spine CT 01/11/19 00:00 IMPRESSION: Mild cervical spondylosis. No fracture or spinal malalignment. Lumbar Spine CT 01/11/19 00:00 IMPRESSION: 1. Lower lumbar disc disease. 2. No high-grade stenosis, fracture or bone lesion. No spinal malalignment detected. Abdomen Ultrasound 01/12/19 00:00 IMPRESSION: NORMAL ABDOMINAL ULTRASOUND. Assessment & Plan - Diagnosis (1) Influenza Is this a current diagnosis for this admission?: Yes Plan: Continues to Tamiflu (2) Fever Qualifiers: Fever type: unspecified Qualified Code(s): R50.9 - Fever, unspecified Is this a current diagnosis for this admission?: Yes Plan: Is likely from the flu Could be possible underlying viral meningitis no sign of any bacterial meningitis Patient is already covered with the IV antibiotics put the ID consult (3) Type 2 diabetes mellitus Is this a current diagnosis for this admission?: Yes Plan: Continues a sliding scales (4) Hypertension Qualifiers: Hypertension type: essential hypertension Qualified Code(s): I10 - Essential (primary) hypertension Is this a current diagnosis for this admission?: Yes Plan: Continues to current medication (5) Substance abuse Is this a current diagnosis for this admission?: Yes Plan: Patients need a psych consult (6) Aortic aneurysm Qualifiers: Presence of rupture: without rupture Is this a current diagnosis for this admission?: Yes Plan: CT scan looks all stable (7) Headache Qualifiers: Headache type: unspecified Headache chronicity pattern: acute headache Intractability: not intractable Qualified Code(s): R51 - Headache Is this a current diagnosis for this admission?: Yes Plan: CT head is negative Very unclear etiology patient seems to be looks fine when you talk but he always complaining about the headache back pain I think underlying some chronic pain symptoms with the awake symptoms patient describes very hard to evaluate Only options left possible may be needed lumbar puncture and MRI of the head which we need to check with the [facility]'s records with his MR-compatible clips just most likely should be (8) Low back pain Qualifiers: Chronicity: chronic Back pain laterality: unspecified Sciatica presence: without sciatica Qualified Code(s): M54.5 - Low back pain; G89.29 - Other ch ronic pain Is this a current diagnosis for this admission?: Yes Plan: Currently all stable Physical therapy evaluations (9) Chronic kidney disease Qualifiers: Chronic kidney disease stage: stage 3 (moderate) Qualified Code(s): N18.3 - Chronic kidney disease, stage 3 (moderate) Is this a current diagnosis for this admission?: Yes Plan: IV fluid will check the current kidney functions - Time Time Spent with patient: 15-24 minutes Medications reviewed and adjusted accordingly: Yes Anticipated discharge: Home Within: Other - Plan Summary Plan Summary: Patient's is a very weak symptoms describes not able to give a proper history Based on the all this clinical data as the patient had persistent fever lumbar puncture is warranted ID consult is already placed He could be a most likely with the ongoing flu which fever is also coming down Patient all the culture is negative Patient have a normal neuro exam CT abdomen pelvis did not show any liver abscess Ultrasound of the abdomen is also negative's
[2019-01-13] MEDS: DOCUSATE SODIUM 100 MG CAPSULE PO SCH ×2 (11:44→18:30)
[2019-01-13] MEDS: GABAPENTIN 300 MG CAPSULE PO SCH ×2 (11:44→23:36)
[2019-01-13] MEDS: OSELTAMIVIR PHOSPHATE 75 MG CAPSULE PO SCH ×2 (11:44→18:31)
[2019-01-13] MEDS: SITAGLIPTIN PHOSPHATE 50 MG TABLET PO SCH (11:44)
[2019-01-13] MEDS: METOPROLOL TARTRATE 100 MG TABLET PO SCH (11:44)
[2019-01-13] MEDS: CEFEPIME HCL 2 GM in DEXTROSE 5%-WATER 50 ML IV SCH ×2 (11:45→23:35)
[2019-01-13 12:26] LABS: INTERNATIONAL RATION (INR) 0.93; PROTHROMBIN TIME 12.9 SEC (11.4-15.4)
[2019-01-13 12:27] LABS: PARTIAL THROMBOPLASTIN TIME 25.9 SEC (23.5-35.8)
[2019-01-13 14:50] LABS: GLUCOSE,CSF 112 mg/dL (40-70); PROTEIN,CSF 143 mg/dL (12-60)
[2019-01-13 14:51] LABS: APPEARANCE ALL TUBES CLEAR; COLOR ALL TUBES COLORLESS; CSF TOTAL VOLUME 11.5 CC; CSF TUBE NUMBER 3; VOLUME TUBE 3 3.5 CC
[2019-01-13 14:54] LABS: RED BLOOD CELL,CSF 7 /uL (0-10)
[2019-01-13 14:55] LABS: WHITE BLOOD CELL,CSF 266 /uL (0-5)
[2019-01-13 15:17] LABS: MONONUCLEAR CELLS CSF 99 %; POLYMORPHONUCLEAR CELLS CSF 1 %
--- NOTE | 2019-01-13 15:21 | RADIOLOGY REPORT (SQ) ---
EXAM DESCRIPTION: LUMBAR PUNCTURE; FLUORO/NEEDLE PLACEMENT/SPINE COMPLETED DATE/TIME: 01/13/2019 2:10 pm REASON FOR STUDY: Continued headache and fever; HEADACHES COMPARISON: None. FLUOROSCOPY TIME: 0.5 minutes. 1 Images saved to PACS. TECHNIQUE: Fluoroscopic guided lumbar puncture with opening and closing pressures. LIMITATIONS: None. PROCEDURE: After written consent and assessment were obtained, the patient was brought into the fluo roscopy room and placed prone on the table. The patient's lower back was prepped in a sterile fashion and an entry site was selected under live fluoroscopic guidance. The entry site was anesthetized wit h 1% lidocaine. A 20 gauge needle was advanced through the skin and into the thecal sac at the level of L 4 -L 5 . An opening pressure of 27 units was obtained. After approximately 11.5 ml of CSF was dr ained, a closing pressure of 18 units was obtained. The needle was removed and a sterile bandage was placed of the site. Specimens were sent to the lab for testing. A fluoroscopic spot image was saved t o PACS confirming level access. FINDINGS: Clear CSF IMPRESSION: Lumbar puncture under fluoroscopy. No immediate complication. COMMENT: Patient medication list reviewed: Yes- Quality ID# [id number]:Eligible professional attests to doc umenting in the medical record they obtained, updated, or reviewed the patient's current medications. Quality ID [id number]: Final reports for procedures using fluoroscopy that document radiation exposure indic es, or exposure time and number of fluorographic images (if radiation exposure indices are not availa ble) TECHNICAL DOCUMENTATION: Job ID: [id number] [employer]- All Rights Reserved Reading location - IP/workstation name: [email or web address]
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
--- NOTE | 2019-01-13 17:56 | Progress Note ---
Provider Note Provider Note: ID Consult Note Asked to review patient's chart. Pt not seen or examined. Pt is a 53 year old who has PMH including obesity, HTN, and AAA s/p repair. He presented with LBP, TELLO and fever on 01/10. He was febrile, ill appearing, tachycardic, lethargic, poor historian on presentation. No midline or CVA tenderness appreciated. He had a positive influenza B antigen test. U/A showed no pyuria. Blood cultures were negative. CT chest, abdomen and pelvis with and without contrast showed nodular liver, midascending thoracic aorta dilation without evidence of dissection, no free air, diverticulosis, no pneumonia. Today LP was performed. Opening pressure was elevated at 27. CSF was clear, colorless with 266 WBCs, mainly mononuclear cells. Glucose in the CSF was 112 and CSF total protein was 143. Impression/Recommendations The patient's elevated opening pressure and CSF formula with elevated protein, no hypoglycorrhachia, and mononuclear cell pleocytosis suggests an aseptic meningitis. - Although it is not really a neurotropic virus, rarely, influenza can be associated with [employer] manifestations, including meningitis, encephalitis, transverse myelitis and Guillain-Feliciano syndrome. It is hard to truly establish or know with certainty if this is directly the cause of the aseptic meningitis picture or if some concomitant viral process could be responsible and the influenza antigen screen being positive as a "red dailey." Other causes of acute aseptic meningitis are also possible, such as NSAID overuse, and it might be worthwhile querying the patient about whether or not this could have been a contributing factor. - No bacterial process has been identified with blood cultures x 48-72h or chest imaging or CT head. If no organisms on CSF gram stain, with the formula being consistent with aseptic meningitis, it would be appropriate to stop cefepime and continue influenza treatment with oseltamivir to finish 5 days and continue to provide supportive care for the patient's headache. Enrique Valadez MD [facility] Infectious Diseases pager [phone]
[2019-01-13] MEDS: POLYETHYLENE GLYCOL 3350 POWDER 17 GM/1 PACKET PO SCH (21:00)
[2019-01-14] MEDS: ACETAMINOPHEN 325 MG TABLET PO PRN ×2 (00:15→17:10)
[2019-01-14] MEDS: OXYCODONE HCL IR 5 MG TABLET PO PRN ×3 (00:17→22:53)
[2019-01-14] MEDS: PANTOPRAZOLE SODIUM 40 MG TABLET.DR PO SCH (06:06)
[2019-01-14 07:03] LABS: APPEARANCE,URINE CLEAR; BILIRUBIN,URINE NEGATIVE (NEGATIVE); COLOR,URINE STRAW; GLUCOSE, URINE >=500 mg/dL (NEGATIVE); KETONES,URINE NEGATIVE (NEGATIVE); LEUKOCYTE ESTERASE,URINE NEGATIVE (NEGATIVE); NITRITE,URINE NEGATIVE (NEGATIVE); PROTEIN,URINE 100 mg/dL (NEGATIVE); URINE SPECIFIC GRAVITY 1.009; UROBILINOGEN,URINE NEGATIVE mg/dL (<2.0)
[2019-01-14 07:37] LABS: HEMATOCRIT 31.1 % (37.9-51.0); HEMOGLOBIN 10.6 g/dL (13.5-17.0); MEAN CORPUSCULAR HEMOGLOBIN 24.7 pg (27.0-33.4); MEAN CORPUSCULAR HGB CONC 33.9 g/dL (32.0-36.0); MEAN CORPUSCULAR VOLUME 73 fl (80-97); PLATELET COUNT 226 10^3/uL (150-450); RED BLOOD COUNT 4.28 10^6/uL (4.35-5.55); RED CELL DISTRIBUTION WIDTH 17.3 % (11.5-14.0); WHITE BLOOD COUNT 4.5 10^3/uL (4.0-10.5)
[2019-01-14 08:04] LABS: ANION GAP 11 (5-19); BLOOD UREA NITROGEN 16 mg/dL (7-20); CALCIUM 8.7 mg/dL (8.4-10.2); CARBON DIOXIDE 26 mmol/L (22-30); CHLORIDE 98 mmol/L (98-107); GLUCOSE 147 mg/dL (75-110); POTASSIUM 3.6 mmol/L (3.6-5.0); SODIUM 134.7 mmol/L (137-145)
[2019-01-14] MEDS: INSULIN LISPRO 100 UNIT/ML 3 ML VIAL SUBCUT SCH ×4 (08:26→22:42)
[2019-01-14 08:56] LABS: ABSOLUTE LYMPHOCYTES# (MANUAL) 0.9 10^3/uL (0.5-4.7); ABSOLUTE MONOCYTES # (MANUAL) 0.8 10^3/uL (0.1-1.4); ABSOLUTE NEUTROPHILS# (MANUAL) 2.7 10^3/uL (1.7-8.2); BASOPHILS % (MANUAL) 0 % (0-2); EOSINOPHILS % (MANUAL) 1 % (0-6); LYMPHOCYTES % (MANUAL) 21 % (13-45); MONOCYTES % (MANUAL) 18 % (3-13); SEGMENTED NEUTROPHILS % (MAN) 60 % (42-78); TOTAL CELLS COUNTED 100
[2019-01-14 08:57] LABS: ANISOCYTOSIS 1+; HYPOCHROMASIA 2+; PLATELET COMMENT ADEQUATE; TARGET CELLS 1+
--- NOTE | 2019-01-14 09:06 | PDOC PROGRESS REPORT ---
Subjective Progress Note for:: 01/14/19 Subjective:: Patient is currently doing well except still having some headache Patient had a lumbar puncture done with opening pressure was high and elevated glucose and protein which consistent with the aseptic meningitis As per discussed with the infectious disease myself and neurology Dr. ma and suggest supportive treatments and DC the IV antibiotic if his cultures negat tim's Patient's otherwise no other new complaints Patient is complain of some constipation's Denied any chest pain to than any shortness of the breath Reason For Visit: FLU Physical Exam Vital Signs: Temp Pulse Resp BP Pulse Ox 98.2 F 85 18 157/109 H 100 01/14/19 08:22 01/14/19 08:22 01/14/19 08:22 01/14/19 08:22 01/14/19 08:22 Intake & Output 01/13/19 01/14/19 01/15/19 06:59 06:59 06:59 Intake Total 3149 4626 Output Total 3030 3003 Balance 119 1623 Weight 99.6 kg 97.9 kg General appearance: PRESENT: no acute distress, well-developed, well-nourished Head exam: PRESENT: atraumatic, normocephalic Eye exam: PRESENT: conjunctiva pink, EOMI, PERRLA. ABSENT: scleral icterus Ear exam: PRESENT: normal external ear exam Mouth exam: PRESENT: moist, tongue midline Neck exam: PRESENT: full ROM. ABSENT: carotid bruit, JVD, lymphadenopathy, thyromegaly Respiratory exam: PRESENT: clear to auscultation mil[place] Cardiovascular exam: PRESENT: RRR. ABSENT: diastolic murmur, rubs, systolic murmur Vascular exam: PRESENT: normal capillary refill GI/Abdominal exam: PRESENT: normal bowel sounds, soft. ABSENT: distended, guarding, mass, organolmegaly, rebound, tenderness Rectal exam: PRESENT: deferred Extremities exam: ABSENT: pedal edema Musculoskeletal exam: PRESENT: ambulatory Neurological exam: PRESENT: alert, awake, oriented to person, oriented to place, oriented to time, oriented to situation, CN II-XII grossly intact. ABSENT: motor sensory deficit Psychiatric exam: PRESENT: appropriate affect, normal mood. ABSENT: homicidal ideation, suicidal ideation Skin exam: PRESENT: dry, intact, warm. ABSENT: cyanosis, rash Results Laboratory Results: 01/14/19 05:55 01/14/19 05:55 01/13/19 01/13/19 01/13/19 13:54 13:54 23:45 WBC RBC Hgb Hct MCV MCH MCHC RDW Plt Count Seg Neutrophils % Lymphocytes % Monocytes % Eosinophils % Basophils % Absolute Neutrophils Absolute Lymphocytes Absolute Monocytes Absolute Eosinophils Absolute Basophils Sodium Potassium Chloride Carbon Dioxide Anion Gap BUN Creatinine Est GFR ( Amer) Est GFR (Non-Af Amer) Glucose Calcium Urine Color STRAW Urine Appearance CLEAR Urine pH 6.0 Ur Specific [place] 1.009 Urine Protein 100 H Urine Glucose (UA) >=500 H Urine Ketones NEGATIVE Urine Blood SMALL H Urine Nitrite NEGATIVE Ur Leukocyte Esterase NEGATIVE Urine WBC (Auto) 0 Urine RBC (Auto) 2 Fluid Tube Number 3 CSF Volume 11.5 CSF Appearance CLEAR CSF Color COLORLESS CSF WBC 266 H CSF RBC 7 CSF Polymorphonuclear 1 CSF Glucose 112 H CSF Total Protein 143 H 01/14/19 01/14/19 05:55 05:55 WBC 4.5 RBC 4.28 L Hgb 10.6 L Hct 31.1 L MCV 73 L MCH 24.7 L MCHC 33.9 RDW 17.3 H Plt Count 226 Seg Neutrophils % Not Reportable Lymphocytes % Not Reportable Monocytes % Not Reportable Eosinophils % Not Reportable Basophils % Not Reportable Absolute Neutrophils Not Reportable Absolute Lymphocytes Not Reportable Absolute Monocytes Not Reportable Absolute Eosinophils Not Reportable Absolute Basophils Not Reportable Sodium 134.7 L Potassium 3.6 Chloride 98 Carbon Dioxide 26 Anion Gap 11 BUN 16 Creatinine 1.40 H Est GFR ( Amer) > 60 Est GFR (Non-Af Amer) 53 L Glucose 147 H Calcium 8.7 Urine Color Urine Appearance Urine pH Ur Specific [place] Urine Protein Urine Glucose (UA) Urine Ketones Urine Blood Urine Nitrite Ur Leukocyte Esterase Urine WBC (Auto) Urine RBC (Auto) Fluid Tube Number CSF Volume CSF Appearance CSF Color CSF WBC CSF RBC CSF Polymorphonuclear CSF Glucose CSF Total Protein 01/10/19 21:25 Clean Catch Midstream Urine Culture - Final NO GROWTH 2 DAYS Impressions: Chest X-Ray 01/10/19 17:32 IMPRESSION: NO ACUTE RADIOGRAPHIC FINDING IN THE CHEST. Head CT 01/10/19 22:26 IMPRESSION: No acute findings. Abdomen/Pelvis CT 01/10/19 23:26 IMPRESSION: Central hepatic biliary dilatation. Mild dilatation of the mid ascending thoracic aorta without dissection. No large or central pulmonary embolus. No pneumonia. Chest/Abdomen CTA 01/10/19 23:27 IMPRESSION: Central hepatic biliary dilatation. Mild dilatation of the mid ascending thoracic aorta without dissection. No large or central pulmonary embolus. No pneumonia. Cervical Spine CT 01/11/19 00:00 IMPRESSION: Mild cervical spondylosis. No fracture or spinal malalignment. Lumbar Spine CT 01/11/19 00:00 IMPRESSION: 1. Lower lumbar disc disease. 2. No high-grade stenosis, fracture or bone lesion. No spinal malalignment detected. Abdomen Ultrasound 01/12/19 00:00 IMPRESSION: NORMAL ABDOMINAL ULTRASOUND. Guidance Fluoroscopy 01/13/19 00:00 IMPRESSION: Lumbar puncture under fluoroscopy. No immediate complication. Lumbar Puncture 01/13/19 00:00 IMPRESSION: Lumbar puncture under fluoroscopy. No immediate complication. Assessment & Plan - Diagnosis (1) Influenza Is this a current diagnosis for this admission?: Yes Plan: Continues to Tamiflu (2) Fever Qualifiers: Fever type: unspecified Qualified Code(s): R50.9 - Fever, unspecified Is this a current diagnosis for this admission?: Yes Plan: Most likely of viral origin from the influenza Continues to Tamiflu (3) Type 2 diabetes mellitus Is this a current diagnosis for this admission?: Yes Plan: Continues a sliding scales (4) Hypertension Qualifiers: Hypertension type: essential hypertension Qualified Code(s): I10 - Essential (primary) hypertension Is this a current diagnosis for this admission?: Yes Plan: Continues to current medication (5) Substance abuse Is this a current diagnosis for this admission?: Yes Plan: That the patient on the Depakote and BuSpar (6) Aortic aneurysm Qualifiers: Presence of rupture: without rupture Is this a current diagnosis for this admission?: Yes Plan: CT scan looks all stable (7) Headache Qualifiers: Headache type: unspecified Headache chronicity pattern: acute headache Intractability: not intractable Qualified Code(s): R51 - Headache Is this a current diagnosis for this admission?: Yes Plan: Probably some aseptic meningitis Continues the pain medications (8) Low back pain Qualifiers: Chronicity: chronic Back pain laterality: unspecified Sciatica presence: without sciatica Qualified Code(s): M54.5 - Low back pain; G89.29 - Other chronic pain Is this a current diagnosis for this admission?: Yes Plan: Currently all stable Physical therapy evaluations (9) Chronic kidney disease Qualifiers: Chronic kidney disease stage: stage 3 (moderate) Qualified Code(s): N18.3 - Chronic kidney disease, stage 3 (moderate) Is this a current diagnosis for this admission?: Yes Plan: IV fluid will check the current kidney functions - Time Time Spent with patient: 15-24 minutes Medications reviewed and adjusted accordingly: Yes Anticipated discharge: Home Within: within 48 hours - Plan Summary Plan Summary: Continues to supportive management Patient does not want to continues to IV fluid Encourage the patient's to increase more p.o. fluid Patients remain afebrile the next 24-48 hours we will discharge the patient
[2019-01-14] MEDS: CEFEPIME HCL 2 GM in DEXTROSE 5%-WATER 50 ML IV SCH ×2 (09:18→22:46)
[2019-01-14] MEDS: SITAGLIPTIN PHOSPHATE 50 MG TABLET PO SCH (09:18)
[2019-01-14] MEDS: DOCUSATE SODIUM 100 MG CAPSULE PO SCH ×2 (09:19→19:06)
[2019-01-14] MEDS: GABAPENTIN 300 MG CAPSULE PO SCH ×2 (09:19→22:42)
[2019-01-14] MEDS: METOPROLOL TARTRATE 100 MG TABLET PO SCH (09:19)
[2019-01-14] MEDS: ENOXAPARIN SODIUM INJ 40 MG/0.4 ML DISP.SYRIN SUBCUT SCH (09:19)
[2019-01-14] MEDS: OSELTAMIVIR PHOSPHATE 75 MG CAPSULE PO SCH ×2 (09:20→17:10)
[2019-01-14] MEDS: POLYETHYLENE GLYCOL 3350 POWDER 17 GM/1 PACKET PO SCH (09:33)
[2019-01-14] MEDS: DIVALPROEX SODIUM 250 MG TABLET.DR PO SCH ×2 (11:08→17:11)
[2019-01-14] MEDS: BUSPIRONE HCL 10 MG TABLET PO SCH ×2 (11:08→22:42)
[2019-01-14] MEDS ORDERED: TRAZODONE HCL 50 MG TABLET PO SCH (22:00)
[2019-01-14] MEDS: GLIPIZIDE 5 MG TABLET PO SCH (22:43)
[2019-01-14] MEDS: CLONIDINE HCL 0.1 MG TABLET PO SCH (22:43)
[2019-01-15] MEDS: PANTOPRAZOLE SODIUM 40 MG TABLET.DR PO SCH (06:53)
[2019-01-15 07:39] LABS: ABSOLUTE EOSINOPHILS # (AUTO) 0.1 10^3/uL (0.0-0.6); ABSOLUTE LYMPHOCYTES (AUTO) 0.5 10^3/uL (0.5-4.7); ABSOLUTE MONOCYTES (AUTO) 0.9 10^3/uL (0.1-1.4); ABSOLUTE NEUT (AUTO) 3.3 10^3/uL (1.7-8.2); BASOPHILS % (AUTO) 0.8 % (0-2); EOSINOPHILS % (AUTO) 2.4 % (0-6); HEMATOCRIT 30.7 % (37.9-51.0); HEMOGLOBIN 10.6 g/dL (13.5-17.0); LYMPHOCYTES % (AUTO) 11.2 % (13-45); MEAN CORPUSCULAR HGB CONC 34.6 g/dL (32.0-36.0); MEAN CORPUSCULAR VOLUME 72 fl (80-97); MONOCYTES % (AUTO) 17.8 % (3-13); PLATELET COUNT 235 10^3/uL (150-450); RED BLOOD COUNT 4.25 10^6/uL (4.35-5.55); RED CELL DISTRIBUTION WIDTH 17.4 % (11.5-14.0); SEGMENTED NEUTROPHILS % (AUTO) 67.8 % (42-78); TOTAL CELLS COUNTED % (AUTO) 100 %; WHITE BLOOD COUNT 4.8 10^3/uL (4.0-10.5)
[2019-01-15 07:44] LABS: ANION GAP 11 (5-19); BLOOD UREA NITROGEN 20 mg/dL (7-20); CARBON DIOXIDE 24 mmol/L (22-30); CHLORIDE 101 mmol/L (98-107); GLUCOSE 112 mg/dL (75-110); POTASSIUM 3.9 mmol/L (3.6-5.0); SODIUM 135.7 mmol/L (137-145)
[2019-01-15] MEDS: INSULIN LISPRO 100 UNIT/ML 3 ML VIAL SUBCUT SCH ×4 (08:17→21:43)
[2019-01-15] MEDS: POLYETHYLENE GLYCOL 3350 POWDER 17 GM/1 PACKET PO SCH (09:55)
[2019-01-15] MEDS: BUSPIRONE HCL 10 MG TABLET PO SCH ×2 (09:55→21:42)
[2019-01-15] MEDS: DIVALPROEX SODIUM 250 MG TABLET.DR PO SCH ×2 (09:55→17:29)
[2019-01-15] MEDS: OSELTAMIVIR PHOSPHATE 75 MG CAPSULE PO SCH ×2 (09:55→17:30)
[2019-01-15] MEDS: GLIPIZIDE 5 MG TABLET PO SCH ×2 (09:57→21:43)
[2019-01-15] MEDS: DOCUSATE SODIUM 100 MG CAPSULE PO SCH ×2 (09:57→17:29)
[2019-01-15] MEDS: METOPROLOL TARTRATE 100 MG TABLET PO SCH (09:58)
[2019-01-15] MEDS ORDERED: LOSARTAN POTASSIUM 50 MG TABLET PO SCH (10:00)
[2019-01-15] MEDS: SITAGLIPTIN PHOSPHATE 50 MG TABLET PO SCH (10:01)
[2019-01-15] MEDS: ENOXAPARIN SODIUM INJ 40 MG/0.4 ML DISP.SYRIN SUBCUT SCH (10:05)
[2019-01-15] MEDS: GABAPENTIN 300 MG CAPSULE PO SCH ×2 (10:11→21:44)
--- NOTE | 2019-01-15 10:47 | PDOC PROGRESS REPORT ---
Subjective Progress Note for:: 01/15/19 Subjective:: Patient is feeling much better Headache is also improving Patient slept well at night Patient having no fever since yesterday Patient is anxious to go home Reason For Visit: FLU Physical Exam Vital Signs: Temp Pulse Resp BP Pulse Ox 97.8 F 80 17 139/95 H 100 01/15/19 08:10 01/15/19 08:10 01/15/19 08:10 01/15/19 08:10 01/15/19 08:10 Intake & Output 01/14/19 01/15/19 01/16/19 06:59 06:59 06:59 Intake Total 4626 1172 Output Total 3003 400 Balance 1623 772 Weight 97.9 kg 98.4 kg General appearance: PRESENT: no acute distress, well-developed, well-nourished Head exam: PRESENT: atraumatic, normocephalic Eye exam: PRESENT: conjunctiva pink, EOMI, PERRLA. ABSENT: scleral icterus Ear exam: PRESENT: normal external ear exam Mouth exam: PRESENT: moist, tongue midline Neck exam: PRESENT: full ROM. ABSENT: carotid bruit, JVD, lymphadenopathy, thyromegaly Respiratory exam: PRESENT: clear to auscultation [place] Cardiovascular exam: ABSENT: diastolic murmur, rubs, systolic murmur Vascular exam: PRESENT: normal capillary refill GI/Abdominal exam: PRESENT: normal bowel sounds, soft. ABSENT: distended, guarding, mass, organolmegaly, rebound, tenderness Rectal exam: PRESENT: deferred Extremities exam: ABSENT: pedal edema Musculoskeletal exam: PRESENT: ambulatory Neurological exam: PRESENT: alert, awake, oriented to person, oriented to place, oriented to time, oriented to situation, reflexes normal, CN II-XII grossly intact, normal gait. ABSENT: motor sensory deficit Psychiatric exam: PRESENT: appropriate affect, normal mood. ABSENT: homicidal i deation, suicidal ideation Skin exam: PRESENT: dry, intact, warm. ABSENT: cyanosis, rash Results Laboratory Results: 01/15/19 06:45 01/15/19 06:45 01/15/19 01/15/19 06:45 06:45 WBC 4.8 RBC 4.25 L Hgb 10.6 L Hct 30.7 L MCV 72 L MCH 25.0 L MCHC 34.6 RDW 17.4 H Plt Count 235 Seg Neutrophils % 67.8 Lymphocytes % 11.2 L Monocytes % 17.8 H Eosinophils % 2.4 Basophils % 0.8 Absolute Neutrophils 3.3 Absolute Lymphocytes 0.5 Absolute Monocytes 0.9 Absolute Eosinophils 0.1 Absolute Basophils 0.0 Sodium 135.7 L Potassium 3.9 Chloride 101 Carbon Dioxide 24 Anion Gap 11 BUN 20 Creatinine 1.40 H Est GFR ( Amer) > 60 Est GFR (Non-Af Amer) 53 L Glucose 112 H Calcium 9.0 01/13/19 13:54 Cerebral Spinal Fluid - Csf Gram Stain - Final 01/12/19 18:48 Throat Throat Culture - Final NORMAL QUENTIN Impressions: Chest X-Ray 01/10/19 17:32 IMPRESSION: NO ACUTE RADIOGRAPHIC FINDING IN THE CHEST. Head CT 01/10/19 22:26 IMPRESSION: No acute findings. Abdomen/Pelvis CT 01/10/19 23:26 IMPRESSION: Central hepatic biliary dilatation. Mild dilatation of the mid ascending thoracic aorta without dissection. No large or central pulmonary embolus. No pneumonia. Chest/Abdomen CTA 01/10/19 23:27 IMPRESSION: Central hepatic biliary dilatation. Mild dilatation of the mid ascending thoracic aorta without dissection. No large or central pulmonary embolus. No pneumonia. Cervical Spine CT 01/11/19 00:00 IMPRESSION: Mild cervical spondylosis. No fracture or spinal malalignment. Lumbar Spine CT 01/11/19 00:00 IMPRESSION: 1. Lower lumbar disc disease. 2. No high-grade stenosis, fracture or bone lesion. No spinal malalignment detected. Abdomen Ultrasound 01/12/19 00:00 IMPRESSION: NORMAL ABDOMINAL ULTRASOUND. Guidance Fluoroscopy 01/13/19 00:00 IMPRESSION: Lumbar puncture under fluoroscopy. No immediate complication. Lumbar Puncture 01/13/19 00:00 IMPRESSION: Lumbar puncture under fluoroscopy. No immediate complication. Assessment & Plan - Diagnosis (1) Influenza Is this a current diagnosis for this admission?: Yes Plan: Continues to Tamiflu (2) Fever Qualifiers: Fever type: unspecified Qualified Code(s): R50.9 - Fever, unspecified Is this a current diagnosis for this admission?: Yes Plan: While the CSF cultures no growth will discontinue the antibiotic (3) Type 2 diabetes mellitus Is this a current diagnosis for this admission?: Yes Plan: Continues a sliding scales (4) Hypertension Qualifiers: Hypertension type: essential hypertension Qualified Code(s): I10 - Essential (primary) hypertension Is this a current diagnosis for this admission?: Yes Plan: Continues to current medication (5) Substance abuse Is this a current diagnosis for this admission?: Yes Plan: That the patient on the Depakote and BuSpar (6) Aortic aneurysm Qualifiers: Presence of rupture: without rupture Is this a current diagnosis for this admission?: Yes Plan: CT scan looks all stable (7) Headache Qualifiers: Headache type: unspecified Headache chronicity pattern: acute headache Intractability: not intractable Qualified Code(s): R51 - Headache Is this a current diagnosis for this admission?: Yes Plan: Sheldon all improving (8) Low back pain Qualifiers: Chronicity: chronic Back pain laterality: unspecified Sciatica presence: without sciatica Qualified Code(s): M54.5 - Low back pain; G89.29 - Other chronic pain Is this a current diagnosis for this admission?: Yes Plan: Currently all stable Physical therapy evaluations (9) Chronic kidney disease Qualifiers: Chronic kidney disease stage: stage 3 (moderate) Qualified Code(s): N18.3 - Chronic kidney disease, stage 3 (moderate) Is this a current diagnosis for this admission?: Yes Plan: IV fluid will check the current kidney functions (10) Aseptic meningitis Is this a current diagnosis for this admission?: Yes Plan: Continue supportive care as per discussed with the neurology and infectious disease Patient is currently all improving Continues to Tamiflu This continues to IV antibiotic - Time Time Spent with patient: 25-34 minutes Medications reviewed and adjusted accordingly: Yes Anticipated discharge: Home Within: within 24 hours - Plan Summary Plan Summary: Patient anxious to go home Discussed with the patient's if the patient has remained afebrile next 24 hours hopefully discharge tomorrow
[2019-01-15] MEDS: CLONIDINE HCL 0.1 MG TABLET PO SCH (21:43)
[2019-01-15] MEDS: OXYCODONE HCL IR 5 MG TABLET PO PRN (22:55)
[2019-01-16] MEDS: PANTOPRAZOLE SODIUM 40 MG TABLET.DR PO SCH (05:30)
[2019-01-16 07:08] LABS: ANION GAP 10 (5-19); BLOOD UREA NITROGEN 20 mg/dL (7-20); CARBON DIOXIDE 26 mmol/L (22-30); CHLORIDE 99 mmol/L (98-107); GLUCOSE 157 mg/dL (75-110); POTASSIUM 3.9 mmol/L (3.6-5.0); SODIUM 134.6 mmol/L (137-145)
[2019-01-16] MEDS: OXYCODONE HCL IR 5 MG TABLET PO PRN (08:17)
[2019-01-16] MEDS: INSULIN LISPRO 100 UNIT/ML 3 ML VIAL SUBCUT SCH (08:18)
[2019-01-16 08:41] VITALS: BP 140/88
--- NOTE | 2019-01-16 13:31 | PDOC DISCHARGE SUMMARY ---
General - Admit/Disc Date/PCP Admission Date/Primary Care Provider: 01/11/19 02:37 NITA MIKE MD Discharge Date: 01/16/19 - Discharge Diagnosis (1) Influenza Is this a current diagnosis for this admission?: Yes Summary: Currently all resolving continues to Tamiflu for another 5 days because of the complicated with aseptic meningitis (2) Fever Is this a current diagnosis for this admission?: Yes Summary: Due to the above conditions currently all resolved (3) Type 2 diabetes mellitus Is this a current diagnosis for this admission?: Yes Summary: Clear all stable continues to current medications (4) Hypertension Is this a current diagnosis for this admission?: Yes Summary: Currently all stable (5) Substance abuse Is this a current diagnosis for this admission?: Yes Summary: Follow outpatient psychologist as per the inpatients evaluations start the patient on a BuSpar and Depakote Again discussed with the patient continues to use the cocaine and marijua we will not provide to and patient is not going to follow the psychiatrist will not going to follow the patient due to this noncompliance and this behavior issues (6) Aortic aneurysm Is this a current diagnosis for this admission?: Yes Summary: CT scan is all stable follow with the [facility] (7) Headache Is this a current diagnosis for this admission?: Yes Summary: Due to the possible chronic pain syndromes with aseptic meningitis currently all resolving make an appointment to see outpatients Dr. demarco neurologist (8) Low back pain Is this a current diagnosis for this admission?: Yes Summary: Seen by the pain management follow outpatient (9) Chronic kidney disease Is this a current diagnosis for this admission?: Yes Summary: Currently all stable patient see outpatients Dr. Pinzon (10) Aseptic meningitis Is this a current diagnosis for this admission?: Yes Summary: Currently all resolving As per discussed with infectious disease in the neurology suggested supportive care most likely due to fluid related Patient's CSF growth is all negative Patients remain afebrile No any meningitis signs Headache is also improving As needed Tylenol Pain medications Follow outpatients neurology Discussed with the patient any increasing any headache any fever following the ER (11) Noncompliance Is this a current diagnosis for this admission?: Yes Summary: Patient is a very noncompliance with the follow the all the physicians noncompliance to take the medications Patient with some very bad behavior to the nursing staff Discussed with the patient about all the things he is to follow and improve - Additional Information Resuscitation Status: Full Code Discharge Diet: Diabetic Discharge Activity: Activity As Tolerated Prescriptions: Buspirone HCl [Buspar 10 mg Tablet] 5 mg PO Q12 #60 tablet Cefdinir 300 mg PO BID #10 capsule Clonidine HCl [Catapres 0.1 mg Tablet] 0.1 mg PO QHS #30 tablet Divalproex Sodium [Depakote Er 250 Mg Tablet] 250 mg PO BID #60 tab.sr.24h Docusate Sodium [Colace 100 mg Capsule] 100 mg PO BID #60 capsule Oseltamivir Phosphate [Tamiflu 75 mg Capsule] 75 mg PO BID #10 capsule Oxycodone HCl [Oxy-Ir 5 mg Tablet] 10 mg PO Q6HP PRN #15 tablet PRN Reason: Pantoprazole Sodium [Protonix [address] Tablet] 40 mg PO Q6AM #30 tablet.dr Polyethylene Glycol 3350 [Miralax Powder 17 gm/Packet] 17 gm PO DAILY #30 powd.pack Home Medications: Gabapentin [Neurontin 300 mg Capsule] 300 mg PO Q12 01/11/19 Glipizide [Glucotrol 5 mg Tablet] 5 mg PO Q12 01/11/19 Linagliptin [Tradjenta] 5 mg PO DAILY 01/11/19 Losartan Potassium [Cozaar 100 mg Tablet] 100 mg PO DAILY 01/11/19 Metoprolol Tartrate [Lopressor 100 mg Tablet] 100 mg PO DAILY 01/11/19 Buspirone HCl [Buspar 10 mg Tablet] 5 mg PO Q12 #60 tablet 01/16/19 Cefdinir 300 mg PO BID #10 capsule 01/16/19 Clonidine HCl [Catapres 0.1 mg Tablet] 0.1 mg PO QHS #30 tablet 01/16/19 Divalproex Sodium [Depakote Er 250 Mg Tablet] 250 mg PO BID #60 tab.sr.24h 01/16/19 Docusate Sodium [Colace 100 mg Capsule] 100 mg PO BID #60 capsule 01/16/19 Oseltamivir Phosphate [Tamiflu 75 mg Capsule] 75 mg PO BID #10 capsule 01/16/19 Oxycodone HCl [Oxy-Ir 5 mg Tablet] 10 mg PO Q6HP PRN #15 tablet 01/16/19 Pantoprazole Sodium [Protonix [address] Tablet] 40 mg PO Q6AM #30 tablet.dr 01/16/19 Polyethylene Glycol 3350 [Miralax Powder 17 gm/Packet] 17 gm PO DAILY #30 powd.pack 01/16/19 History of Present Illness History of Present Illness: BIANCA CUNNINGHAM is a 53 year old male This is a 53-year-old male with a history of the type 2 diabetes history of the hypertension's history of the substernal abuse and history of noncompliance and a history of aortic aneurysm repair at [facility] which is also noncompliance to follow recently as a new patient to the practice came to the emergency department with a complaining of a fever headache and a severe back pain. Patient is a very poor historians according to the ER physicians he tried to get the history unable to get it much and with doing a lot of testings which including the CT of the head was negative and a CT of the chest abdomen and pelvis was done because of the patient's not giving the proper history to rule out the other etiology which is also negative for any acute findings. Patient is positive for the flu which is related to the all the symptoms decided to admit in the hospital Patient with chronic back problems always asks some pain medications seen by the pain management in the past Patient also have this vascular issue which referred to the vascular surgeon at [facility] in the [facility] vascular call the patient he did not answer and he claimed he did not answer the unknown phone number which very noncompliance to not follow Patients do not take the medicine as prescribed Patient urine drug screen is positive for cocaine but patients denied to use it patient said that he used to marijuana Patient's when I saw it in the [facility] still complaining of back pain Patient unable to go to the MRI due to the vascular clip Patient's review the all the CT scan was all stable Patient with chronic kidney disease currently see Dr. Pinzon recently get a contrast will continues IV fluids and closely monitor We will put the patient has some pain medication and consult the pain management in order the CT of the LS spine and C-spine further evaluations but unable to get the MRI Patient denied any visual problem No sign of any meningitis Continues to IV fluid continues IV antibiotics Patient otherwise alert awake oriented answer all question appropriately except complaining of a pain Supposed to be on Eliquis because patient have a thrombus in the aorta which current CT scan is all stable but I do not think so patients take any Eliquis as prescribed Hospital Course Hospital Course: This is a 53-year-old male substance abuse history of aortic aneurysms history of the liver abscess and history of type 2 diabetes hypertension hyperlipidemia multiple medical problems top of that very noncompliance came to the emergency department with a complaining of fever back pain headache In the ER physician extensively workup done with the very vague history not tripe cooker perating very well as usual patient's very vague complaint of have a CT of the head and other workup done was negative except the patient's positive for the flu Patient admitting in the hospital for the IV antibiotics and a Tamiflu Patient underwent for the CT of the LS spine and C-spine and pain management was consulted Patient unfortunately unable to go to the MRI due to the vascular clips Patients given IV fluids IV antibiotics and patient still having headaches so patient underwent for the lumbar puncture which consistent with possible aseptic meningitis but no bacterial meningitis Patient CSF culture is all negative Patient's blood culture urine culture is all negative Patient is otherwise response very well with the treatments Patient is alert awake oriented x4 all the times Patient is walking the hallway without any problems Patient only issue with the complaining of pain in the back and the head sometimes Patient's fever is all improving and resolved for the last 24 hours As per discussed with infectious disease myself on the phone suggest that continues to Tamiflu and discontinued the IV antibiotics Discussed with the neurology locally myself and suggested supportive care and follow outpatient Patient is otherwise doing well on discharge Discussed with the patient is currently live with this 10-year-old son and a girlfriend and discussed with the patient is to talk to the patient's family about patient's condition the patient is refused to do that patient said he will take care of himself he does not needs to inform anybody Again with very extensive discussions with the patient about the compliance of the medications not use the substance abuse otherwise patients going to be a more complicated and problems Patient also needs to see the [facility] with all continues care from the aneurysms Supposed to see outpatients neurology outpatients pain management and outpatient [facility] Physical Exam Vital Signs: Temp Pulse Resp BP Pulse Ox 99.1 F 76 16 147/96 H 99 01/16/19 08:26 01/16/19 08:26 01/16/19 08:26 01/16/19 08:26 01/16/19 08:26 Intake & Output 01/15/19 01/16/19 01/17/19 06:59 06:59 06:59 Intake Total 1172 1681 Output Total 400 1700 Balance 772 -19 Weight 98.4 kg 98.9 kg General appearance: PRESENT: no acute distress, well-developed, well-nourished Head exam: PRESENT: atraumatic, normocephalic Eye exam: PRESENT: conjunctiva pink, EOMI, PERRLA. ABSENT: scleral icterus Ear exam: PRESENT: normal external ear exam Mouth exam: PRESENT: moist, tongue midline Neck exam: PRESENT: full ROM. ABSENT: carotid bruit, JVD, lymphadenopathy, thyromegaly Respiratory exam: PRESENT: clear to auscultation [place] Cardiovascular exam: PRESENT: RRR. ABSENT: diastolic murmur, rubs, systolic murmur Pulses: PRESENT: normal dorsalis pedis pul, +2 pedal pulses bilateral Vascular exam: PRESENT: normal capillary refill GI/Abdominal exam: PRESENT: normal bowel sounds, soft. ABSENT: distended, guarding, mass, organolmegaly, rebound, tenderness Rectal exam: PRESENT: deferred Extremities exam: ABSENT: pedal edema Musculoskeletal exam: PRESENT: ambulatory Neurological exam: PRESENT: alert, awake, oriented to person, oriented to place, oriented to time, oriented to situation, reflexes normal, CN II-XII grossly intact, normal gait. ABSENT: motor sensory deficit Psychiatric exam: PRESENT: appropriate affect, normal mood. ABSENT: homicidal ideation, suicidal ideation Skin exam: PRESENT: dry, intact, warm. ABSENT: cyanosis, rash Results Laboratory Results: 01/15/19 06:45 01/16/19 06:22 01/16/19 06:22 Sodium 134.6 L Potassium 3.9 Chloride 99 Carbon Dioxide 26 Anion Gap 10 BUN 20 Creatinine 1.34 H Est GFR ( Amer) > 60 Est GFR (Non-Af Amer) 56 L Glucose 157 H Calcium 9.0 01/11/19 10:15 Blood Blood Culture - Final NO GROWTH IN 5 DAYS 01/13/19 13:54 Cerebral Spinal Fluid - Csf Gram Stain - Final 01/13/19 13:54 Cerebral Spinal Fluid - Csf CSF Culture - Final NO GROWTH 3 DAYS 01/11/19 08:00 Blood Blood Culture - Final NO GROWTH IN 5 DAYS 01/10/19 20:37 Blood Blood Culture - Final NO GROWTH IN 5 DAYS 01/10/19 18:48 Blood Blood Culture - Final NO GROWTH IN 5 DAYS Impressions: Chest X-Ray 01/10/19 17:32 IMPRESSION: NO ACUTE RADIOGRAPHIC FINDING IN THE CHEST. Head CT 01/10/19 22:26 IMPRESSION: No acute findings. Abdomen/Pelvis CT 01/10/19 23:26 IMPRESSION: Central hepatic biliary dilatation. Mild dilatation of the mid ascending thoracic aorta without dissection. No large or central pulmonary embolus. No pneumonia. Chest/Abdomen CTA 01/10/19 23:27 IMPRESSION: Central hepatic biliary dilatation. Mild dilatation of the mid ascending thoracic aorta without dissection. No large or central pulmonary embolus. No pneumonia. Cervical Spine CT 01/11/19 00:00 IMPRESSION: Mild cervical spondylosis. No fracture or spinal malalignment. Lumbar Spine CT 01/11/19 00:00 IMPRESSION: 1. Lower lumbar disc disease. 2. No high-grade stenosis, fracture or bone lesion. No spinal malalignment detected. Abdomen Ultrasound 01/12/19 00:00 IMPRESSION: NORMAL ABDOMINAL ULTRASOUND. Guidance Fluoroscopy 01/13/19 00:00 IMPRESSION: Lumbar puncture under fluoroscopy. No immediate complication. Lumbar Puncture 01/13/19 00:00 IMPRESSION: Lumbar puncture under fluoroscopy. No immediate complication. Qualifiers - * PATIENT BEING DISCHARGED WITH ANY OF THE FOLLOWING DIAGNOSIS: No VTE patient discharged on overlapping Therapy?: Yes Plan Time Spent: Greater than 30 Minutes - pt discharged home with a stable conditions follow outpatients all the subspecialty
== END 2019-01-16 10:07 | disposition home or self-care (01) | DRG 193 ==
LOC: ER 16:38 → EH 01-11 02:37 → 3S 01-11 04:24
PROVIDERS: ADMIT Family Medicine; ATTEND Family Medicine
PROC: 009U3ZX Drainage of Spinal Canal, Percutaneous Approach, Diagnostic (ICD-10-PCS; principal; 2019-01-13)
PROC: B01BZZZ Fluoroscopy of Spinal Cord (ICD-10-PCS; 2019-01-13)
DX: J10.1 Influenza due to other identified influenza virus with other respiratory manifestations (principal); G03.0 Nonpyogenic meningitis; E11.22 Type 2 diabetes mellitus with diabetic chronic kidney disease; I12.9 Hypertensive chronic kidney disease with stage 1 through stage 4 chronic kidney disease, or unspecified chronic kidney disease; N18.3 Chronic kidney disease, stage 3 (moderate); Z86.718 Personal history of other venous thrombosis and embolism; F14.10 Cocaine abuse, uncomplicated; F17.200 Nicotine dependence, unspecified, uncomplicated; F12.10 Cannabis abuse, uncomplicated; E78.5 Hyperlipidemia, unspecified; M54.16 Radiculopathy, lumbar region; Z91.14 Patient's other noncompliance with medication regimen; Z79.84 Long term (current) use of oral hypoglycemic drugs; Z79.899 Other long term (current) drug therapy; Z86.79 Personal history of other diseases of the circulatory system
CPT/HCPCS: 36415; 62270; 70450; 71045; 71275; 72125; 72131; 74177; 76700; 77003; 80048; 80053; 80074; 80076; 80307; 81001; 82803; 82945; 82962; 83605; 83690; 84157; 85025; 85610; 85730; 86308; 86701; 87040; 87070; 87086; 87205; 87252; 87804; 87880; 89050; 96361; 96365; 96366; 96375; 99291; J0692; J1170; J1650; J1815; J1885; J3490; J7030